=== PATIENT | female | born 1935 | race Caucasian/White ===

== ENCOUNTER 2021-08-02 02:30 | Inpatient (IN) ==
[2021-08-02] MEDS ORDERED: IPRATROPIUM/ALBUTEROL 3 ML AMPUL.NEB NEB ONE (02:45)
[2021-08-02] MEDS ORDERED: NITROGLYCERIN 0.4 MG TAB.SUBL SL ONE (02:52)
[2021-08-02] MEDS ORDERED: FUROSEMIDE 40 MG/4 ML VIAL IV ONE (02:52)
[2021-08-02] MEDS ORDERED: cefTRIAXone 1 GM VIAL IV ONE (02:54)
[2021-08-02] MEDS ORDERED: AZITHROMYCIN 500 MG in DEXTROSE 5% IN WATER 250 ML IV ONE (02:54)
[2021-08-02 03:54] LABS: Basophils # (Auto) 0.06 K/mcL (0.00-0.30); Basophils % (Auto) 0.3 % (0.0-2.0); Eosinophils # (Auto) 0.03 K/mcL (0.00-0.70); Eosinophils % (Auto) 0.2 % (0.0-7.0); Hemoglobin 11.9 g/dL (11.2-15.7); Lymphocytes # (Auto) 0.92 K/mcL (1.50-4.80); Lymphocytes % (Auto) 5.4 % (15.5-49.0); Mean Cell Volume 88.9 fL (80.0-100.0); Mean Corpuscular HGB Conc 33.1 g/dL (31.0-36.0); Mean Platelet Volume 10.2 fL (7.4-10.4); Monocytes % (Auto) 7.6 % (1.0-12.0); Neutrophils % (Auto) 86.5 % (38.0-78.0); Platelet Count 199 K/mcL (140-440); RBC 4.05 M/mcL (3.59-5.38); Red Cell Distribution Width 13.5 % (11.5-14.5); WBC 17.2 K/mcL (4.5-11.0)
[2021-08-02 04:06] LABS: ALT/SGPT 11 U/L (<40); AST/SGOT 22 U/L (<32); Albumin 4.2 gm/dL (3.2-5.2); Albumin/Globulin Ratio 1.4 (1.0-2.3); Alkaline Phosphatase 103 U/L (39-117); Bilirubin,Total 0.9 mg/dL (0.1-1.0); Blood Urea Nitrogen 16 mg/dL (8-23); Calcium 9.4 mg/dL (8.6-10.4); Carbon Dioxide 27 mmol/L (22-30); Chloride 86 mmol/L (96-108); Globulin 2.9 gm/dL (2.2-3.7); Glomerular Filtration Rate 57; Glucose 230 mg/dL (70-105); proBNP 839.5 pg/mL (<450.0)
[2021-08-02 05:03] LABS: Appearance,Urine CLEAR (Clear); Bilirubin,Urine Negative (Negative); Color,Urine YELLOW; Culture Indicated,Urine No; Glucose,Urine (UA) Negative (Negative); Ketones,Urine Negative (Negative); Leukocyte Esterase,Urine Negative /uL (Negative); Mucus,Urine FEW /hpf; Nitrate,Urine Negative (Negative); Protein,Urine >=500 mg/dL (Negative); Specific Gravity,Urine 1.008 (1.000-1.035); Urine Blood Negative (Negative); Urine Hyaline Cast 6 /lph (0-2); Urine RBC 5 /hpf (0-3); Urine Squamous Epithelial Cell 0 /hpf (0-4); Urine WBC 2 /hpf (0-4); Urobilinogen,Urine Negative
--- NOTE | 2021-08-02 05:36 | XRay Report ---
INDICATION: SOB, rales, hypoxia TECHNIQUE: AP portable semiupright chest x-ray COMPARISON: None FINDINGS: Diffuse pulmonary parenchymal infiltrates, worst at the right lung base. Appearances consistent with pulmonary edema. Pneumonia is not excluded in the appropriate clinical circumstances. There is cardiomegaly. There is probable right pleural fluid. IMPRESSION: Findings consistent with cardiomegaly and congestive heart failure Interpreted and Authenticated by: Britton Whittington 08/02/21
--- NOTE | 2021-08-02 06:17 | Emergency Department Note ---
SOB HPI General Chief Complaint: Shortness of Breath/Dyspnea Stated Complaint: short of breath Time Seen by Provider: 08/02/21 02:44 Source: family Mode of arrival: EMS Limitations: other History of Present Illness HPI Narrative: Narrative: 86-year-old female history of A. fib, CHF on Coumadin, digoxin, torsemide,, chronic pain syndromes on methadone presenting to the ED with severe dyspnea. Started since yesterday. Slight cough no fevers no chest pain also has some mild general abdominal pain. Legs perhaps slightly swollen bilaterally although has some mild chronic edema family reports. No fever chills or URI symptoms. No other complaints. EMS reports O2 sat 70% in the field placed her on 15 L nonrebreather up to 90% brought her to the ER. Related Data Home Medications Medication Instructions Recorded Confirmed docusate sodium 100 mg capsule 100 mg PO BID PRN 12/23/18 07/14/21 ketotifen fumarate 0.025 % (0.035 1 drp OPHTHALMIC BID 04/14/19 07/14/21 %) eye drops ([place]) loratadine 5 mg disintegrating 5 mg PO ONCE 08/17/20 07/14/21 tablet (Claritin RediTabs) ascorbic acid (vitamin C) 1,000 mg 500 mg PO QDAY 06/08/21 07/14/21 tablet (Vitamin C) torsemide 20 mg tablet 20 mg PO BID tab 07/14/21 08/02/21 digoxin 125 mcg (0.125 mg) tablet 125 mcg PO DAILY 08/02/21 08/02/21 estradiol 1 g VAGINAL 3XW 08/02/21 08/02/21 lorazepam 1 mg tablet 1 mg PO QHS PRN 08/02/21 08/02/21 metronidazole 0.75 % topical cream 1 applic TOPICAL DAILY 08/02/21 08/02/21 Previous Rx's Medication Instructions Recorded cholecalciferol (vitamin D3) 50 2,000 unit PO QDAY #90 tab 04/14/19 mcg (2,000 unit) tablet fluticasone propionate 50 2 spray INTRANASAL QDAY #16 g 10/20/19 mcg/actuation nasal spray,suspension tamsulosin 0.4 mg capsule 0.4 mg PO QDAY #30 cap 01/24/21 naloxone 4 mg/actuation nasal 4 mg INTRANASAL Q2M #2 ea 04/13/22 spray (Narcan) methadone 10 mg tablet 10 mg PO QDAY #30 tab MDD 1 06/08/21 warfarin 4 mg tablet 4 mg PO QDAY #0 tab 06/30/21 Allergies Allergy/AdvReac Type Severity Reaction Status Date / Time bumetanide Allergy Unknown Unknown Verified 08/02/21 05:48 flaxseed Allergy Unknown Unknown Verified 08/02/21 05:48 gentamicin Allergy Unknown Anaphylaxis Verified 08/02/21 05:48 mesalamine Allergy Unknown Unknown Verified 08/02/21 05:48 Metolazone Allergy Unknown Unknown Verified 08/02/21 05:48 Sulfa (Sulfonamide Allergy Unknown Anaphylaxis Verified 08/02/21 05:48 Antibiotics) wheat Allergy Unknown Diarrhea Verified 08/02/21 05:48 Animals Allergy Unknown Unknown Uncoded 07/14/21 11:18 Grass Allergy Unknown Unknown Uncoded 07/14/21 11:18 Trees Allergy Unknown Unknown Uncoded 07/14/21 11:18 Weeds Allergy Unknown Unknown Uncoded 07/14/21 11:18 Review of Systems ROS ROS Narrative: Narrative: All systems ED: reviewed and negative except as stated. PFSH Narrative Patient History Narrative: Narrative: Medical/Surgical/Family History All Active Problems (Updated 08/02/21 @ 06:21 by Kendrick Singh DO) Acute exacerbation of CHF (congestive heart failure) (Acute) Acute respiratory failure with hypoxia (Acute) Diabetes (Acute) Pre-op evaluation (Acute) Encounter for monitoring Coumadin therapy (Acute) White coat syndrome with diagnosis of hypertension (Chronic) Erosive (osteo)arthritis (Acute) Knee pain, left (Acute) Hyponatremia (Chronic) Anemia due to stage 3a chronic kidney disease (Chronic) Hyperkalemia (Acute) Hypercalcemia (Acute) Chronic kidney disease (CKD) stage G3a/A3, moderately decreased glomerular filtration rate (GFR) between 45-59 mL/min/1.73 square meter and albuminuria creatinine ratio greater than 300 mg/g (Chronic) Basal cell carcinoma of skin, unspecified (Acute) Cardiac arrhythmia, unspecified (Acute) Opioid dependence, uncomplicated (Acute) Idiopathic progressive neuropathy (Acute) Chronic pain (Acute) Fatigue (Acute) History of colonoscopy (Chronic ~2001) Allergies (Chronic) Colon ulcer (Chronic) Kidney stones (Chronic ~2005) Insomnia (Chronic) Daytime sleepiness (Chronic) Basal cell carcinoma (Chronic ~1985) Arthritis (Chronic) Constipation (Chronic) Hayfever (Chronic) detention (current) use of opiate analgesic (Chronic) Urinary incontinence (Chronic) Rosacea (Chronic) Chronic atrial fibrillation (Chronic) Neuropathy (Chronic) Ulcerative colitis (Chronic) Anxiety disorder (Chronic) Cyst of pancreas (Chronic) Localized edema due to fluid overload (Chronic) Persistent proteinuria (Chronic) Gout due to renal impairment (Chronic) Hyperglycemia (Chronic) Anemia (Chronic) Ulcerative enterocolitis (Chronic) Hypertension (Chronic) Acute anxiety (Chronic) Atrial fibrillation (Chronic) Chronic pain syndrome (Chronic) Peripheral neuropathy (Chronic) Medical History Acute anxiety Allergies Anemia Anxiety disorder Arthritis Atrial fibrillation Basal cell carcinoma (~1985) Basal cell carcinoma of skin, unspecified Cardiac arrhythmia, unspecified Chronic atrial fibrillation Chronic pain Chronic pain syndrome Colon ulcer Constipation Cyst of pancreas Daytime sleepiness Encounter for monitoring Coumadin therapy Erosive (osteo)arthritis Fatigue Hayfever Heart trouble (~1986) Hyperglycemia Hypertension Idiopathic progressive neuropathy Insomnia Kidney stones (~2005) Knee pain, left detention (current) use of opiate analgesic Neuropathy Opioid dependence, uncomplicated use for nonmalignant pain Peripheral neuropathy Pre-op evaluation Rosacea Ulcerative colitis Ulcerative enterocolitis Urinary incontinence Surgical History History of colonoscopy (~2001) History of hysterectomy (~1968) Family History Grandmother Arthritis Maternal Aunt Cancer Heart attack Paternal Uncle Cancer Father Cancer Social History Smoking Status: Never smoker Alcohol Intake Frequency: does not drink Substance Use: does not use Exam Narrative Narrative: Narrative: Constitutional: normally developed, overall frail appearing Head: Normocephalic, atraumatic, Eyes: No Icterus, ENT: Moist mucus membranes, Neck: Supple, Cardiac: Tachycardic irregular heart sounds, palpable radial pulses, 1+ pitting edema Pulmonary: Labored diminished lung sounds at bases, she has diffuse rales bilaterally especially significant at the right base Gastrointestinal: Abdomen soft, slightly distended but nontender Musculoskeletal: No gross deformities, well perfused Skin: warm, dry Neuro: Alert and oriented. General Limitations: other Course Vital Signs Vital signs: Vital Signs Pulse Rate 116 H 08/02/21 02:31 Respiratory Rate 30 H 08/02/21 02:31 Blood Pressure 183/99 08/02/21 02:31 Pulse Oximetry (%) 96 08/02/21 02:31 Pulse Rate 73 08/02/21 06:16 Respiratory Rate 21 08/02/21 06:16 Blood Pressure 124/73 08/02/21 06:16 Pulse Oximetry (%) 98 08/02/21 06:16 MDM MDM Narrative Medical decision making narrative: Narrative: Patient presents with dyspnea hypoxia work-up was initiated. Blood pressure elevated as well as heart rate and appears volume overloaded. Biggest suspicion is for CHF exacerbation did give her sublingual nitroglycerin in the meantime. We will place her on BiPAP. Did trial her with a single DuoNeb X-ray per my interpretation Shows bilateral pulmonary edema right greater than left with a right-sided effusion cannot entirely rule out pneumonia Patient was given 40 mg IV Lasix, initial dose of antibiotics Rocephin azithromycin Twelve-lead EKG A. fib heart rate 100 occasional PVC no STEMI criteria generalized nonspecific changes no ST segment changes COVID-negative CBC leukocytosis of 17 Procalcitonin normal ABG pH 7.4 PCO2 46 PO2 64, bicarb 28 this was obtained at that time she was placed on BiPAP Lactic acid is normal 1.5 on the gas, lactic acid 0.7 on the labs Electrolytes hyponatremia somewhat chronic 125 hypochloremia 86 normal potassium, normal renal function, glucose 230, consistent with suspected new diabetes BNP 840 Urinalysis no infection [id number] troponin 0 Presentation most suggestive of CHF exacerbation with pulmonary edema, has received treatment as above, reevaluation she appears to be doing very well on BiPAP, will continue as is, we do not have any beds available we are on the wait list at [place] other surrounding areas are completely full, we will continue treating and continue with bed search, have updated patient and family all agreeable no new complaints 0630: Addendum, patient weaned off BiPAP currently comfortable and stable on 2 L nasal cannula continue close observation 0700: Signed out to Dr. Jewell still awaiting final disposition Critical Care Time Total CriticalCare time was at least 45 minutes, excluding separately reportable procedures. There was a high probability of clinically significant/life threatening deterioration in the patient's condition which required my urgent intervention. Lab Data Result diagrams: 08/02/21 02:57 08/02/21 02:54 Labs: Lab Results 08/02/21 08/02/21 08/02/21 Range/Units 02:54 02:54 02:57 WBC 17.2 H (4.5-11.0) K/mcL RBC 4.05 (3.59-5.38) M/mcL Hgb 11.9 (11.2-15.7) g/dL Hct 36.0 (34.1-44.9) % MCV 88.9 (80.0-100.0) fL MCH 29.4 (26.0-34.0) pg MCHC 33.1 (31.0-36.0) g/dL RDW 13.5 (11.5-14.5) % Plt Count 199 (140-440) K/mcL MPV 10.2 (7.4-10.4) fL Neut % (Auto) 86.5 H (38.0-78.0) % Lymph % (Auto) 5.4 L (15.5-49.0) % [place] % (Auto) 7.6 (1.0-12.0) % Eos % (Auto) 0.2 (0.0-7.0) % Baso % (Auto) 0.3 (0.0-2.0) % Lymph # (Auto) 0.92 L (1.50-4.80) K/mcL [place] # (Auto) 1.30 H (0.10-0.90) K/mcL Eos # (Auto) 0.03 (0.00-0.70) K/mcL Baso # (Auto) 0.06 (0.00-0.30) K/mcL Absolute Neutrophils 14.84 H (1.80-8.00) K/mcL POC pH (7.35-7.45) POC pCO2 (35-45) mmHg POC pO2 (80-100) mmHg POC HCO3 (22-26) mmHg POC Total CO2 (23-27) mmHg POC ABG Base Excess (-2-3) VBG Lactic Acid (0.5-2.0) mmol/L Hgb O2 Saturation (94-97) Sodium 125 L (133-145) mmol/L Potassium 4.0 (3.3-5.1) mmol/L Chloride 86 L (96-108) mmol/L Carbon Dioxide 27 (22-30) mmol/L Anion Gap 12.0 (8.0-16.0) BUN 16 (8-23) mg/dL Creatinine 0.9 (0.6-1.1) mg/dL GFR Calculation 57 Glucose 230 H (70-105) mg/dL POC Arterial Lactate (0.5-2) Calcium 9.4 (8.6-10.4) mg/dL Total Bilirubin 0.9 (0.1-1.0) mg/dL AST 22 (<32) U/L ALT 11 (<40) U/L Alkaline Phosphatase 103 (39-117) U/L NT-Pro-B Natriuret Pep 839.5 H (<450.0) pg/mL Total Protein 7.1 (5.9-8.4) gm/dL Albumin 4.2 (3.2-5.2) gm/dL Globulin 2.9 (2.2-3.7) gm/dL Albumin/Globulin Ratio 1.4 (1.0-2.3) Lipase 12 (7-60) U/L Procalcitonin (<0.10) ng/mL Urine Color Urine Appearance (Clear) Urine pH (5.0-9.0) Ur Specific [place] (1.000-1.035) Urine Protein (Negative) mg/dL Urine Glucose (UA) (Negative) mg/dL Urine Ketones (Negative) mg/dL Urine Occult Blood (Negative) mg/dL Urine Nitrate (Negative) Urine Bilirubin (Negative) mg/dL Urine Urobilinogen mg/dL Ur Leukocyte Esterase (Negative) /uL Urine RBC (0-3) /hpf Urine WBC (0-4) /hpf Ur Squamous Epith Cells (0-4) /hpf Urine Bacteria (0) /hpf Hyaline Casts (0-2) /lph Urine Mucus (None) /hpf Ur Culture Indicated? POC Troponin I 0 L (0.02-0.08) 08/02/21 08/02/21 08/02/21 Range/Units 02:57 03:14 03:47 WBC (4.5-11.0) K/mcL RBC (3.59-5.38) M/mcL Hgb (11.2-15.7) g/dL Hct (34.1-44.9) % MCV (80.0-100.0) fL MCH (26.0-34.0) pg MCHC (31.0-36.0) g/dL RDW (11.5-14.5) % Plt Count (140-440) K/mcL MPV (7.4-10.4) fL Neut % (Auto) (38.0-78.0) % Lymph % (Auto) (15.5-49.0) % [place] % (Auto) (1.0-12.0) % Eos % (Auto) (0.0-7.0) % Baso % (Auto) (0.0-2.0) % Lymph # (Auto) (1.50-4.80) K/mcL [place] # (Auto) (0.10-0.90) K/mcL Eos # (Auto) (0.00-0.70) K/mcL Baso # (Auto) (0.00-0.30) K/mcL Absolute Neutrophils (1.80-8.00) K/mcL POC pH 7.40 (7.35-7.45) POC pCO2 46.3 H (35-45) mmHg POC pO2 64 L (80-100) mmHg POC HCO3 28.5 H (22-26) mmHg POC Total CO2 30.0 H (23-27) mmHg POC ABG Base Excess 4.0 H (-2-3) VBG Lactic Acid 1.5 (0.5-2.0) mmol/L Hgb O2 Saturation 92.0 L (94-97) Sodium (133-145) mmol/L Potassium (3.3-5.1) mmol/L Chloride (96-108) mmol/L Carbon Dioxide (22-30) mmol/L Anion Gap (8.0-16.0) BUN (8-23) mg/dL Creatinine (0.6-1.1) mg/dL GFR Calculation Glucose (70-105) mg/dL POC Arterial Lactate 0.7 (0.5-2) Calcium (8.6-10.4) mg/dL Total Bilirubin (0.1-1.0) mg/dL AST (<32) U/L ALT (<40) U/L Alkaline Phosphatase (39-117) U/L NT-Pro-B Natriuret Pep (<450.0) pg/mL Total Protein (5.9-8.4) gm/dL Albumin (3.2-5.2) gm/dL Globulin (2.2-3.7) gm/dL Albumin/Globulin Ratio (1.0-2.3) Lipase (7-60) U/L Procalcitonin 0.09 (<0.10) ng/mL Urine Color Urine Appearance (Clear) Urine pH (5.0-9.0) Ur Specific [place] (1.000-1.035) Urine Protein (Negative) mg/dL Urine Glucose (UA) (Negative) mg/dL Urine Ketones (Negative) mg/dL Urine Occult Blood (Negative) mg/dL Urine Nitrate (Negative) Urine Bilirubin (Negative) mg/dL Urine Urobilinogen mg/dL Ur Leukocyte Esterase (Negative) /uL Urine RBC (0-3) /hpf Urine WBC (0-4) /hpf Ur Squamous Epith Cells (0-4) /hpf Urine Bacteria (0) /hpf Hyaline Casts (0-2) /lph Urine Mucus (None) /hpf Ur Culture Indicated? POC Troponin I (0.02-0.08) 08/02/21 Range/Units 04:16 WBC (4.5-11.0) K/mcL RBC (3.59-5.38) M/mcL Hgb (11.2-15.7) g/dL Hct (34.1-44.9) % MCV (80.0-100.0) fL MCH (26.0-34.0) pg MCHC (31.0-36.0) g/dL RDW (11.5-14.5) % Plt Count (140-440) K/mcL MPV (7.4-10.4) fL Neut % (Auto) (38.0-78.0) % Lymph % (Auto) (15.5-49.0) % [place] % (Auto) (1.0-12.0) % Eos % (Auto) (0.0-7.0) % Baso % (Auto) (0.0-2.0) % Lymph # (Auto) (1.50-4.80) K/mcL [place] # (Auto) (0.10-0.90) K/mcL Eos # (Auto) (0.00-0.70) K/mcL Baso # (Auto) (0.00-0.30) K/mcL Absolute Neutrophils (1.80-8.00) K/mcL POC pH (7.35-7.45) POC pCO2 (35-45) mmHg POC pO2 (80-100) mmHg POC HCO3 (22-26) mmHg POC Total CO2 (23-27) mmHg POC ABG Base Excess (-2-3) VBG Lactic Acid (0.5-2.0) mmol/L Hgb O2 Saturation (94-97) Sodium (133-145) mmol/L Potassium (3.3-5.1) mmol/L Chloride (96-108) mmol/L Carbon Dioxide (22-30) mmol/L Anion Gap (8.0-16.0) BUN (8-23) mg/dL Creatinine (0.6-1.1) mg/dL GFR Calculation Glucose (70-105) mg/dL POC Arterial Lactate (0.5-2) Calcium (8.6-10.4) mg/dL Total Bilirubin (0.1-1.0) mg/dL AST (<32) U/L ALT (<40) U/L Alkaline Phosphatase (39-117) U/L NT-Pro-B Natriuret Pep (<450.0) pg/mL Total Protein (5.9-8.4) gm/dL Albumin (3.2-5.2) gm/dL Globulin (2.2-3.7) gm/dL Albumin/Globulin Ratio (1.0-2.3) Lipase (7-60) U/L Procalcitonin (<0.10) ng/mL Urine Color Yellow Urine Appearance Clear (Clear) Urine pH 6.0 (5.0-9.0) Ur Specific [place] 1.008 (1.000-1.035) Urine Protein >=500 A (Negative) mg/dL Urine Glucose (UA) Negative (Negative) mg/dL Urine Ketones Negative (Negative) mg/dL Urine Occult Blood Negative (Negative) mg/dL Urine Nitrate Negative (Negative) Urine Bilirubin Negative (Negative) mg/dL Urine Urobilinogen Negative mg/dL Ur Leukocyte Esterase Negative (Negative) /uL Urine RBC 5 H (0-3) /hpf Urine WBC 2 (0-4) /hpf Ur Squamous Epith Cells 0 (0-4) /hpf Urine Bacteria None (0) /hpf Hyaline Casts 6 H (0-2) /lph Urine Mucus Few A (None) /hpf Ur Culture Indicated? No POC Troponin I (0.02-0.08) ED POC Tests ED POC Tests: LUL - SARS Antigen Negative Discharge Plan Patient/Caregiver Discharge Instructions Pt seen by PERCUSSION TEACHER/PA only: No Clinical Impression: Acute exacerbation of CHF (congestive heart failure), Acute respiratory failure with hypoxia, Diabetes Patient Disposition: Xfer As Inpt ([facility]) Condition: Serious Follow up with: Kam Sorensen ARNP [Primary Care Provider] - Prescriptions: No Action fluticasone propionate 50 mcg/actuation spray,suspension 2 spray INTRANASAL QDAY Qty: 16 2RF Rx Instructions: administer into each nostril tamsulosin 0.4 mg capsule 0.4 mg PO QDAY Qty: 30 11RF warfarin 4 mg tablet 4 mg PO QDAY Qty: 0 0RF naloxone [Narcan] 4 mg/actuation spray,non-aerosol 4 mg intranasal Q2M Qty: 2 0RF Rx Instructions: spray 1 dose into ONE nostril; alternate nostrils w each dose until help arrives ascorbic acid (vitamin C) [Vitamin C] 1,000 mg tablet 500 mg PO QDAY 0RF methadone 10 mg tablet 10 mg PO QDAY MDD 1 Qty: 30 0RF Rx Instructions: *MUST LAST 30 DAYS*, P/U 08/17 , Start 08/18 docusate sodium 100 mg capsule 100 mg PO BID PRN0RF cholecalciferol (vitamin D3) 50 mcg (2,000 unit) tablet 2,000 unit PO QDAY Qty: 90 4RF Claritin RediTabs 5 mg tablet,disintegrating 5 mg PO ONCE 0RF torsemide 20 mg tablet 20 mg PO BID 0RF Rx Instructions: 20 mg in am and 20 mg at 3:00 p.m. metronidazole 0.75 % cream 1 applic TOPICAL DAILY 0RF digoxin 125 mcg (0.125 mg) tablet 125 mcg PO DAILY 0RF lorazepam 1 mg tablet 1 mg PO QHS PRN (Reason: sleep) 0RF estradiol 0.01 % (0.1 mg/gram) cream 1 g VAGINAL 3XW 0RF ketotifen fumarate [[place]] 0.025 % (0.035 %) drops 1 drp OPHTHALMIC BID 0RF
[2021-08-02] MEDS ORDERED: METHADONE 5 MG TABLET PO ONE (06:39)
[2021-08-02 06:42] LABS: POC INR 2.4 (0.8-1.2); POC Pro Time 27.2 (11.9-14.5)
[2021-08-02 07:57] LABS: POC Calcium, Ionized 1.01 (1.16-1.32); POC Creatinine 0.8 (0.6-1.2); POC Potassium 4.4 (3.3-5.1)
--- NOTE | 2021-08-02 10:55 | Emergency Department Note ---
HPI General Chief complaint: Shortness of Breath/Dyspnea Stated complaint: short of breath Time Seen by Provider: 08/02/21 02:44 Source: family Mode of arrival: EMS Limitations: other History of Present Illness HPI Narrative: Narrative: Patient signed out to me pending admission versus transfer. Briefly with CHF e xacerbation, hypertensive emergency on arrival requiring BiPAP, weaned off now on 2 L nasal cannula. Patient feels otherwise well. She is noted to be hyponatremic. Related Data Home Medications Medication Instructions Recorded Confirmed docusate sodium 100 mg capsule 100 mg PO BID PRN 12/23/18 07/14/21 ketotifen fumarate 0.025 % (0.035 1 drp OPHTHALMIC BID 04/14/19 07/14/21 %) eye drops ([place]) loratadine 5 mg disintegrating 5 mg PO ONCE 08/17/20 07/14/21 tablet (Claritin RediTabs) ascorbic acid (vitamin C) 1,000 mg 500 mg PO QDAY 06/08/21 07/14/21 tablet (Vitamin C) torsemide 20 mg tablet 20 mg PO BID tab 07/14/21 08/02/21 digoxin 125 mcg (0.125 mg) tablet 125 mcg PO DAILY 08/02/21 08/02/21 estradiol 1 g VAGINAL 3XW 08/02/21 08/02/21 lorazepam 1 mg tablet 1 mg PO QHS PRN 08/02/21 08/02/21 metronidazole 0.75 % topical cream 1 applic TOPICAL DAILY 08/02/21 08/02/21 Previous Rx's Medication Instructions Recorded cholecalciferol (vitamin D3) 50 2,000 unit PO QDAY #90 tab 04/14/19 mcg (2,000 unit) tablet fluticasone propionate 50 2 spray INTRANASAL QDAY #16 g 10/20/19 mcg/actuation nasal spray,suspension tamsulosin 0.4 mg capsule 0.4 mg PO QDAY #30 cap 01/24/21 naloxone 4 mg/actuation nasal 4 mg INTRANASAL Q2M #2 ea 06/07/21 spray (Narcan) methadone 10 mg tablet 10 mg PO QDAY #30 tab MDD 1 06/08/21 warfarin 4 mg tablet 4 mg PO QDAY #0 tab 06/30/21 Allergies Allergy/AdvReac Type Severity Reaction Status Date / Time bumetanide Allergy Unknown Unknown Verified 08/02/21 05:48 flaxseed Allergy Unknown Unknown Verified 08/02/21 05:48 gentamicin Allergy Unknown Anaphylaxis Verified 08/02/21 05:48 mesalamine Allergy Unknown Unknown Verified 08/02/21 05:48 Metolazone Allergy Unknown Unknown Verified 08/02/21 05:48 Sulfa (Sulfonamide Allergy Unknown Anaphylaxis Verified 08/02/21 05:48 Antibiotics) wheat Allergy Unknown Diarrhea Verified 08/02/21 05:48 Animals Allergy Unknown Unknown Uncoded 07/14/21 11:18 Grass Allergy Unknown Unknown Uncoded 07/14/21 11:18 Trees Allergy Unknown Unknown Uncoded 07/14/21 11:18 Weeds Allergy Unknown Unknown Uncoded 07/14/21 11:18 Review of Systems ROS ROS Narrative: Narrative: PFSH Narrative Patient History Narrative: Narrative: Medical/Surgical/Family History All Active Problems (Updated 08/02/21 @ 06:21 by Kendrick Singh DO) Acute exacerbation of CHF (congestive heart failure) (Acute) Acute respiratory failure with hypoxia (Acute) Diabetes (Acute) Pre-op evaluation (Acute) Encounter for monitoring Coumadin therapy (Acute) White coat syndrome with diagnosis of hypertension (Chronic) Erosive (osteo)arthritis (Acute) Knee pain, left (Acute) Hyponatremia (Chronic) Anemia due to stage 3a chronic kidney disease (Chronic) Hyperkalemia (Acute) Hypercalcemia (Acute) Chronic kidney disease (CKD) stage G3a/A3, moderately decreased glomerular filtration rate (GFR) between 45-59 mL/min/1.73 square meter and albuminuria creatinine ratio greater than 300 mg/g (Chronic) Basal cell carcinoma of skin, unspecified (Acute) Cardiac arrhythmia, unspecified (Acute) Opioid dependence, uncomplicated (Acute) Idiopathic progressive neuropathy (Acute) Chronic pain (Acute) Fatigue (Acute) History of colonoscopy (Chronic ~2001) Allergies (Chronic) Colon ulcer (Chronic) Kidney stones (Chronic ~2005) Insomnia (Chronic) Daytime sleepiness (Chronic) Basal cell carcinoma (Chronic ~1985) Arthritis (Chronic) Constipation (Chronic) Hayfever (Chronic) senior living (current) use of opiate analgesic (Chronic) Urinary incontinence (Chronic) Rosacea (Chronic) Chronic atrial fibrillation (Chronic) Neuropathy (Chronic) Ulcerative colitis (Chronic) Anxiety disorder (Chronic) Cyst of pancreas (Chronic) Localized edema due to fluid overload (Chronic) Persistent proteinuria (Chronic) Gout due to renal impairment (Chronic) Hyperglycemia (Chronic) Anemia (Chronic) Ulcerative enterocolitis (Chronic) Hypertension (Chronic) Acute anxiety (Chronic) Atrial fibrillation (Chronic) Chronic pain syndrome (Chronic) Peripheral neuropathy (Chronic) Medical History Acute anxiety Allergies Anemia Anxiety disorder Arthritis Atrial fibrillation Basal cell carcinoma (~1985) Basal cell carcinoma of skin, unspecified Cardiac arrhythmia, unspecified Chronic atrial fibrillation Chronic pain Chronic pain syndrome Colon ulcer Constipation Cyst of pancreas Daytime sleepiness Encounter for monitoring Coumadin therapy Erosive (osteo)arthritis Fatigue Hayfever Heart trouble (~1986) Hyperglycemia Hypertension Idiopathic progressive neuropathy Insomnia Kidney stones (~2005) Knee pain, 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 Neuropathy Opioid dependence, uncomplicated use for nonmalignant pain Peripheral neuropathy Pre-op evaluation Rosacea Ulcerative colitis Ulcerative enterocolitis Urinary incontinence Surgical History History of colonoscopy (~2001) History of hysterectomy (~1968) Family History Grandmother Arthritis Maternal Aunt Cancer Heart attack Paternal Uncle Cancer Father Cancer Social History Smoking Status: Never smoker Alcohol Intake Frequency: does not drink Substance Use: does not use Exam Narrative Narrative: Narrative: General Limitations: other General appearance: Present alert and in no apparent distress Chest Chest: Present normal inspection and symmetric chest wall rise Respiratory Respiratory: Present other (Requiring 2 L nasal cannula); Absent respiratory distress Course Vital Signs Vital signs: Vital Signs Pulse Rate 116 H 08/02/21 02:31 Respiratory Rate 30 H 08/02/21 02:31 Blood Pressure 183/99 08/02/21 02:31 Pulse Oximetry (%) 96 08/02/21 02:31 Pulse Rate 99 H 08/02/21 10:45 Respiratory Rate 19 08/02/21 10:45 Blood Pressure 126/93 08/02/21 10:45 Pulse Oximetry (%) 93 08/02/21 10:45 MDM MDM Narrative Medical decision making narrative: Narrative: Patient with hypertensive emergency/CHF exacerbation requiring oxygen, will admit for further stabilization. Accepted by hospitalist had no other acute events Lab Data Result diagrams: 08/02/21 02:57 08/02/21 02:54 Labs: Lab Results 08/02/21 08/02/21 08/02/21 Range/Units 02:54 02:54 02:57 WBC 17.2 H (4.5-11.0) K/mcL RBC 4.05 (3.59-5.38) M/mcL Hgb 11.9 (11.2-15.7) g/dL Hct 36.0 (34.1-44.9) % POC Hct (36-48) MCV 88.9 (80.0-100.0) fL MCH 29.4 (26.0-34.0) pg MCHC 33.1 (31.0-36.0) g/dL RDW 13.5 (11.5-14.5) % Plt Count 199 (140-440) K/mcL MPV 10.2 (7.4-10.4) fL Neut % (Auto) 86.5 H (38.0-78.0) % Lymph % (Auto) 5.4 L (15.5-49.0) % [place] % (Auto) 7.6 (1.0-12.0) % Eos % (Auto) 0.2 (0.0-7.0) % Baso % (Auto) 0.3 (0.0-2.0) % Lymph # (Auto) 0.92 L (1.50-4.80) K/mcL [place] # (Auto) 1.30 H (0.10-0.90) K/mcL Eos # (Auto) 0.03 (0.00-0.70) K/mcL Baso # (Auto) 0.06 (0.00-0.30) K/mcL Absolute Neutrophils 14.84 H (1.80-8.00) K/mcL POC PT (11.9-14.5) POC INR (0.8-1.2) POC pH (7.35-7.45) POC pCO2 (35-45) mmHg POC pO2 (80-100) mmHg POC HCO3 (22-26) mmHg POC Total CO2 (23-27) mmHg POC ABG Base Excess (-2-3) VBG Lactic Acid (0.5-2.0) mmol/L Hgb O2 Saturation (94-97) POC Sodium (133-145) Sodium 125 L (133-145) mmol/L POC Potassium (3.3-5.1) Potassium 4.0 (3.3-5.1) mmol/L POC Chloride (96-108) Chloride 86 L (96-108) mmol/L Carbon Dioxide 27 (22-30) mmol/L Anion Gap 12.0 (8.0-16.0) POC BUN (6-20) BUN 16 (8-23) mg/dL Creatinine 0.9 (0.6-1.1) mg/dL POC Creatinine (0.6-1.2) GFR Calculation 57 Glucose 230 H (70-105) mg/dL POC Glucose (70-105) POC Arterial Lactate (0.5-2) Calcium 9.4 (8.6-10.4) mg/dL POC WB Ioniz Calcium (1.16-1.32) Total Bilirubin 0.9 (0.1-1.0) mg/dL AST 22 (<32) U/L ALT 11 (<40) U/L Alkaline Phosphatase 103 (39-117) U/L NT-Pro-B Natriuret Pep 839.5 H (<450.0) pg/mL Total Protein 7.1 (5.9-8.4) gm/dL Albumin 4.2 (3.2-5.2) gm/dL Globulin 2.9 (2.2-3.7) gm/dL Albumin/Globulin Ratio 1.4 (1.0-2.3) Lipase 12 (7-60) U/L Procalcitonin (<0.10) ng/mL Urine Color Urine Appearance (Clear) Urine pH (5.0-9.0) Ur Specific [place] (1.000-1.035) Urine Protein (Negative) mg/dL Urine Glucose (UA) (Negative) mg/dL Urine Ketones (Negative) mg/dL Urine Occult Blood (Negative) mg/dL Urine Nitrate (Negative) Urine Bilirubin (Negative) mg/dL Urine Urobilinogen mg/dL Ur Leukocyte Esterase (Negative) /uL Urine RBC (0-3) /hpf Urine WBC (0-4) /hpf Ur Squamous Epith Cells (0-4) /hpf Urine Bacteria (0) /hpf Hyaline Casts (0-2) /lph Urine Mucus (None) /hpf Ur Culture Indicated? POC Troponin I 0 L (0.02-0.08) 08/02/21 08/02/21 08/02/21 Range/Units 02:57 03:14 03:47 WBC (4.5-11.0) K/mcL RBC (3.59-5.38) M/mcL Hgb (11.2-15.7) g/dL Hct (34.1-44.9) % POC Hct (36-48) MCV (80.0-100.0) fL MCH (26.0-34.0) pg MCHC (31.0-36.0) g/dL RDW (11.5-14.5) % Plt Count (140-440) K/mcL MPV (7.4-10.4) fL Neut % (Auto) (38.0-78.0) % Lymph % (Auto) (15.5-49.0) % [place] % (Auto) (1.0-12.0) % Eos % (Auto) (0.0-7.0) % Baso % (Auto) (0.0-2.0) % Lymph # (Auto) (1.50-4.80) K/mcL [place] # (Auto) (0.10-0.90) K/mcL Eos # (Auto) (0.00-0.70) K/mcL Baso # (Auto) (0.00-0.30) K/mcL Absolute Neutrophils (1.80-8.00) K/mcL POC PT (11.9-14.5) POC INR (0.8-1.2) POC pH 7.40 (7.35-7.45) POC pCO2 46.3 H (35-45) mmHg POC pO2 64 L (80-100) mmHg POC HCO3 28.5 H (22-26) mmHg POC Total CO2 30.0 H (23-27) mmHg POC ABG Base Excess 4.0 H (-2-3) VBG Lactic Acid 1.5 (0.5-2.0) mmol/L Hgb O2 Saturation 92.0 L (94-97) POC Sodium (133-145) Sodium (133-145) mmol/L POC Potassium (3.3-5.1) Potassium (3.3-5.1) mmol/L POC Chloride (96-108) Chloride (96-108) mmol/L Carbon Dioxide (22-30) mmol/L Anion Gap (8.0-16.0) POC BUN (6-20) BUN (8-23) mg/dL Creatinine (0.6-1.1) mg/dL POC Creatinine (0.6-1.2) GFR Calculation Glucose (70-105) mg/dL POC Glucose (70-105) POC Arterial Lactate 0.7 (0.5-2) Calcium (8.6-10.4) mg/dL POC WB Ioniz Calcium (1.16-1.32) Total Bilirubin (0.1-1.0) mg/dL AST (<32) U/L ALT (<40) U/L Alkaline Phosphatase (39-117) U/L NT-Pro-B Natriuret Pep (<450.0) pg/mL Total Protein (5.9-8.4) gm/dL Albumin (3.2-5.2) gm/dL Globulin (2.2-3.7) gm/dL Albumin/Globulin Ratio (1.0-2.3) Lipase (7-60) U/L Procalcitonin 0.09 (<0.10) ng/mL Urine Color Urine Appearance (Clear) Urine pH (5.0-9.0) Ur Specific [place] (1.000-1.035) Urine Protein (Negative) mg/dL Urine Glucose (UA) (Negative) mg/dL Urine Ketones (Negative) mg/dL Urine Occult Blood (Negative) mg/dL Urine Nitrate (Negative) Urine Bilirubin (Negative) mg/dL Urine Urobilinogen mg/dL Ur Leukocyte Esterase (Negative) /uL Urine RBC (0-3) /hpf Urine WBC (0-4) /hpf Ur Squamous Epith Cells (0-4) /hpf Urine Bacteria (0) /hpf Hyaline Casts (0-2) /lph Urine Mucus (None) /hpf Ur Culture Indicated? POC Troponin I (0.02-0.08) 08/02/21 08/02/21 08/02/21 Range/Units 04:16 06:39 07:54 WBC (4.5-11.0) K/mcL RBC (3.59-5.38) M/mcL Hgb (11.2-15.7) g/dL Hct (34.1-44.9) % POC Hct 33.0 L (36-48) MCV (80.0-100.0) fL MCH (26.0-34.0) pg MCHC (31.0-36.0) g/dL RDW (11.5-14.5) % Plt Count (140-440) K/mcL MPV (7.4-10.4) fL Neut % (Auto) (38.0-78.0) % Lymph % (Auto) (15.5-49.0) % [place] % (Auto) (1.0-12.0) % Eos % (Auto) (0.0-7.0) % Baso % (Auto) (0.0-2.0) % Lymph # (Auto) (1.50-4.80) K/mcL [place] # (Auto) (0.10-0.90) K/mcL Eos # (Auto) (0.00-0.70) K/mcL Baso # (Auto) (0.00-0.30) K/mcL Absolute Neutrophils (1.80-8.00) K/mcL POC PT 27.2 H (11.9-14.5) POC INR 2.4 H (0.8-1.2) POC pH (7.35-7.45) POC pCO2 (35-45) mmHg POC pO2 (80-100) mmHg POC HCO3 (22-26) mmHg POC Total CO2 28.0 (23-27) mmHg POC ABG Base Excess (-2-3) VBG Lactic Acid (0.5-2.0) mmol/L Hgb O2 Saturation (94-97) POC Sodium 127 L (133-145) Sodium (133-145) mmol/L POC Potassium 4.4 (3.3-5.1) Potassium (3.3-5.1) mmol/L POC Chloride 91 L (96-108) Chloride (96-108) mmol/L Carbon Dioxide (22-30) mmol/L Anion Gap (8.0-16.0) POC BUN 16 (6-20) BUN (8-23) mg/dL Creatinine (0.6-1.1) mg/dL POC Creatinine 0.8 (0.6-1.2) GFR Calculation Glucose (70-105) mg/dL POC Glucose 177 H (70-105) POC Arterial Lactate (0.5-2) Calcium (8.6-10.4) mg/dL POC WB Ioniz Calcium 1.01 L (1.16-1.32) Total Bilirubin (0.1-1.0) mg/dL AST (<32) U/L ALT (<40) U/L Alkaline Phosphatase (39-117) U/L NT-Pro-B Natriuret Pep (<450.0) pg/mL Total Protein (5.9-8.4) gm/dL Albumin (3.2-5.2) gm/dL Globulin (2.2-3.7) gm/dL Albumin/Globulin Ratio (1.0-2.3) Lipase (7-60) U/L Procalcitonin (<0.10) ng/mL Urine Color Yellow Urine Appearance Clear (Clear) Urine pH 6.0 (5.0-9.0) Ur Specific [place] 1.008 (1.000-1.035) Urine Protein >=500 A (Negative) mg/dL Urine Glucose (UA) Negative (Negative) mg/dL Urine Ketones Negative (Negative) mg/dL Urine Occult Blood Negative (Negative) mg/dL Urine Nitrate Negative (Negative) Urine Bilirubin Negative (Negative) mg/dL Urine Urobilinogen Negative mg/dL Ur Leukocyte Esterase Negative (Negative) /uL Urine RBC 5 H (0-3) /hpf Urine WBC 2 (0-4) /hpf Ur Squamous Epith Cells 0 (0-4) /hpf Urine Bacteria None (0) /hpf Hyaline Casts 6 H (0-2) /lph Urine Mucus Few A (None) /hpf Ur Culture Indicated? No POC Troponin I (0.02-0.08) 08/02/21 Range/Units 07:57 WBC (4.5-11.0) K/mcL RBC (3.59-5.38) M/mcL Hgb (11.2-15.7) g/dL Hct (34.1-44.9) % POC Hct (36-48) MCV (80.0-100.0) fL MCH (26.0-34.0) pg MCHC (31.0-36.0) g/dL RDW (11.5-14.5) % Plt Count (140-440) K/mcL MPV (7.4-10.4) fL Neut % (Auto) (38.0-78.0) % Lymph % (Auto) (15.5-49.0) % [place] % (Auto) (1.0-12.0) % Eos % (Auto) (0.0-7.0) % Baso % (Auto) (0.0-2.0) % Lymph # (Auto) (1.50-4.80) K/mcL [place] # (Auto) (0.10-0.90) K/mcL Eos # (Auto) (0.00-0.70) K/mcL Baso # (Auto) (0.00-0.30) K/mcL Absolute Neutrophils (1.80-8.00) K/mcL POC PT (11.9-14.5) POC INR (0.8-1.2) POC pH (7.35-7.45) POC pCO2 (35-45) mmHg POC pO2 (80-100) mmHg POC HCO3 (22-26) mmHg POC Total CO2 (23-27) mmHg POC ABG Base Excess (-2-3) VBG Lactic Acid (0.5-2.0) mmol/L Hgb O2 Saturation (94-97) POC Sodium (133-145) Sodium (133-145) mmol/L POC Potassium (3.3-5.1) Potassium (3.3-5.1) mmol/L POC Chloride (96-108) Chloride (96-108) mmol/L Carbon Dioxide (22-30) mmol/L Anion Gap (8.0-16.0) POC BUN (6-20) BUN (8-23) mg/dL Creatinine (0.6-1.1) mg/dL POC Creatinine (0.6-1.2) GFR Calculation Glucose (70-105) mg/dL POC Glucose (70-105) POC Arterial Lactate (0.5-2) Calcium (8.6-10.4) mg/dL POC WB Ioniz Calcium (1.16-1.32) Total Bilirubin (0.1-1.0) mg/dL AST (<32) U/L ALT (<40) U/L Alkaline Phosphatase (39-117) U/L NT-Pro-B Natriuret Pep (<450.0) pg/mL Total Protein (5.9-8.4) gm/dL Albumin (3.2-5.2) gm/dL Globulin (2.2-3.7) gm/dL Albumin/Globulin Ratio (1.0-2.3) Lipase (7-60) U/L Procalcitonin (<0.10) ng/mL Urine Color Urine Appearance (Clear) Urine pH (5.0-9.0) Ur Specific [place] (1.000-1.035) Urine Protein (Negative) mg/dL Urine Glucose (UA) (Negative) mg/dL Urine Ketones (Negative) mg/dL Urine Occult Blood (Negative) mg/dL Urine Nitrate (Negative) Urine Bilirubin (Negative) mg/dL Urine Urobilinogen mg/dL Ur Leukocyte Esterase (Negative) /uL Urine RBC (0-3) /hpf Urine WBC (0-4) /hpf Ur Squamous Epith Cells (0-4) /hpf Urine Bacteria (0) /hpf Hyaline Casts (0-2) /lph Urine Mucus (None) /hpf Ur Culture Indicated? POC Troponin I 0.15 H (0.02-0.08) ED POC Tests ED POC Tests: LUL - SARS Antigen Negative Discharge Plan Patient/Caregiver Discharge Instructions Pt seen by [employer] INSTRUCTOR/PA only: No Clinical Impression: Acute exacerbation of CHF (congestive heart failure), Acute respiratory failure with hypoxia, Diabetes Patient Disposition: Xfer As Inpt ([facility]) Condition: Serious Follow up with: Kam Sorensen ARNP [Primary Care Provider] - Prescriptions: No Action fluticasone propionate 50 mcg/actuation spray,suspension 2 spray INTRANASAL QDAY Qty: 16 2RF Rx Instructions: administer into each nostril tamsulosin 0.4 mg capsule 0.4 mg PO QDAY Qty: 30 11RF warfarin 4 mg tablet 4 mg PO QDAY Qty: 0 0RF naloxone [Narcan] 4 mg/actuation spray,non-aerosol 4 mg intranasal Q2M Qty: 2 0RF Rx Instructions: spray 1 dose into ONE nostril; alternate nostrils w each dose until help arrives ascorbic acid (vitamin C) [Vitamin C] 1,000 mg tablet 500 mg PO QDAY 0RF methadone 10 mg tablet 10 mg PO QDAY MDD 1 Qty: 30 0RF Rx Instructions: *MUST LAST 30 DAYS*, P/U 08/17 , Start 08/18 docusate sodium 100 mg capsule 100 mg PO BID PRN0RF cholecalciferol (vitamin D3) 50 mcg (2,000 unit) tablet 2,000 unit PO QDAY Qty: 90 4RF Claritin RediTabs 5 mg tablet,disintegrating 5 mg PO ONCE 0RF torsemide 20 mg tablet 20 mg PO BID 0RF Rx Instructions: 20 mg in am and 20 mg at 3:00 p.m. metronidazole 0.75 % cream 1 applic TOPICAL DAILY 0RF digoxin 125 mcg (0.125 mg) tablet 125 mcg PO DAILY 0RF lorazepam 1 mg tablet 1 mg PO QHS PRN (Reason: sleep) 0RF estradiol 0.01 % (0.1 mg/gram) cream 1 g VAGINAL 3XW 0RF ketotifen fumarate [[place]] 0.025 % (0.035 %) drops 1 drp OPHTHALMIC BID 0RF
--- NOTE | 2021-08-02 12:30 | Internal Med History&Physical ---
HPI History of Present Illness Patient information: Note initiated : 08/02/21 at 12:25 pm Service Date, if different from initiated Date: [as above] Patient: Kerline Loredo 86 y/o F admitted on for short of breath. Chief Complaint: [SOB] Chief complaint: SOB History of present illness: Ms. Loredo is a 86 year old F with a past medical history significant for chronic atrial fibrillation on Coumadin, neuropathy on methadone, and generalized anxiety on clonazepam who presents to the hospital with 24-hour history of dyspnea associated with palpitations. She denies any chest pain, or diaphoresis. She has no known history of ischemic cardiovascular disease. The patient lives alone however her daughter is next-door. The patient states that she is in her usual health and has not been seen by cardiology in quite some time she has been stable. This been no recent hospitalizations. The patient states that she does feel palpitations from time to time. She began to experience progressive shortness of breath yesterday evening when she called her daughter. She decided to come to the ER for further management and evaluation. On presentation, she was found to be hypoxemic and required BiPAP for temporization. She was prescribed Lasix 40 mg IV x1. She was monitored closely and her respiratory status did improve and she was transitioned to 2 L of nasal cannula. The hospital service was asked to admit the patient for further management and evaluation of her acute on chronic diastolic congestive heart failure exacerbation. Review of Systems All systems: reviewed and no additional remarkable complaints except as stated Constitutional Constitutional: Present as per HPI EENT Eyes: Present as per HPI; Absent blurry vision Cardiovascular Cardiovascular: Present as per HPI; Absent chest pain, dyspnea, dyspnea on exertion, leg edema or palpatations Respiratory Respiratory: Present as per HPI and dyspnea; Absent cough, dyspnea on exertion, wheezing or stridor Gastrointestinal Gastrointestinal: Present as per HPI; Absent abdominal pain, diarrhea, dysphagia, hematemesis, melena, nausea or vomiting Musculoskeletal Musculoskeletal: Present as per HPI; Absent joint swelling, limited range of motion, muscle cramps, muscle weakness or myalgias Integumentary Integumentary: Present as per HPI; Absent erythema, new lesions, rash or wounds Neurological Neurological: Present as per HPI; Absent abnormal gait, behavioral changes, focal weakness, headache(s), loss of vision, numbness, sensory deficit or syncope Endocrine Endocrine: Absent change in body appearance, fatigue or heat intolerance Hematologic/Lymphatic Hematologic/Lymphatic: Present as per HPI PFSH PFSH All Active Problems (Updated 08/02/21 @ 12:29 by Christopher Alegria MD) Atrial fibrillation with RVR (Acute) Acute exacerbation of CHF (congestive heart failure) (Acute) Acute respiratory failure with hypoxia (Acute) Diabetes (Acute) Pre-op evaluation (Acute) Encounter for monitoring Coumadin therapy (Acute) White coat syndrome with diagnosis of hypertension (Chronic) Erosive (osteo)arthritis (Acute) Knee pain, left (Acute) Hyponatremia (Chronic) Anemia due to stage 3a chronic kidney disease (Chronic) Hyperkalemia (Acute) Hypercalcemia (Acute) Chronic kidney disease (CKD) stage G3a/A3, moderately decreased glomerular filtration rate (GFR) between 45-59 mL/min/1.73 square meter and albuminuria creatinine ratio greater than 300 mg/g (Chronic) Basal cell carcinoma of skin, unspecified (Acute) Cardiac arrhythmia, unspecified (Acute) Opioid dependence, uncomplicated (Acute) Idiopathic progressive neuropathy (Acute) Chronic pain (Acute) Fatigue (Acute) History of colonoscopy (Chronic ~2001) Allergies (Chronic) Colon ulcer (Chronic) Kidney stones (Chronic ~2005) Insomnia (Chronic) Daytime sleepiness (Chronic) Basal cell carcinoma (Chronic ~1985) Arthritis (Chronic) Constipation (Chronic) Hayfever (Chronic) intermediate card tender (current) use of opiate analgesic (Chronic) Urinary incontinence (Chronic) Rosacea (Chronic) Chronic atrial fibrillation (Chronic) Neuropathy (Chronic) Ulcerative colitis (Chronic) Anxiety disorder (Chronic) Cyst of pancreas (Chronic) Localized edema due to fluid overload (Chronic) Persistent proteinuria (Chronic) Gout due to renal impairment (Chronic) Hyperglycemia (Chronic) Anemia (Chronic) Ulcerative enterocolitis (Chronic) Hypertension (Chronic) Acute anxiety (Chronic) Atrial fibrillation (Chronic) Chronic pain syndrome (Chronic) Peripheral neuropathy (Chronic) Medical History Acute anxiety Allergies Anemia Anxiety disorder Arthritis Atrial fibrillation Basal cell carcinoma (~1985) Basal cell carcinoma of skin, unspecified Cardiac arrhythmia, unspecified Chronic atrial fibrillation Chronic pain Chronic pain syndrome Colon ulcer Constipation Cyst of pancreas Daytime sleepiness Encounter for monitoring Coumadin therapy Erosive (osteo)arthritis Fatigue Hayfever Heart trouble (~1986) Hyperglycemia Hypertension Idiopathic progressive neuropathy Insomnia Kidney stones (~2005) Knee pain, left penitentiary (current) use of opiate analgesic Neuropathy Opioid dependence, uncomplicated use for nonmalignant pain Peripheral neuropathy Pre-op evaluation Rosacea Ulcerative colitis Ulcerative enterocolitis Urinary incontinence Surgical History History of colonoscopy (~2001) History of hysterectomy (~1968) Family History Grandmother Arthritis Maternal Aunt Cancer Heart attack Paternal Uncle Cancer Father Cancer Social History marital status: alcohol intake frequency: does not drink substance use type: does not use MEDS/ALLERGIES Home Medications and Allergies Home Medications Medication Instructions Recorded Confirmed Type docusate sodium 100 mg capsule 100 mg PO BID PRN 12/23/18 07/14/21 History cholecalciferol (vitamin D3) 50 2,000 unit PO QDAY #90 tab 04/14/19 07/14/21 Rx mcg (2,000 unit) tablet ketotifen fumarate 0.025 % (0.035 1 drp OPHTHALMIC BID 04/14/19 07/14/21 History %) eye drops ([place]) fluticasone propionate 50 2 spray INTRANASAL QDAY #16 g 10/20/19 08/02/21 Rx mcg/actuation nasal spray,suspension loratadine 5 mg disintegrating 5 mg PO ONCE 08/17/20 07/14/21 History tablet (Claritin RediTabs) tamsulosin 0.4 mg capsule 0.4 mg PO QDAY #30 cap 01/24/21 08/02/21 Rx naloxone 4 mg/actuation nasal 4 mg INTRANASAL Q2M #2 ea 06/07/21 07/14/21 Rx spray (Narcan) ascorbic acid (vitamin C) 1,000 mg 500 mg PO QDAY 06/08/21 07/14/21 History tablet (Vitamin C) methadone 10 mg tablet 10 mg PO QDAY #30 tab MDD 1 06/08/21 08/02/21 Rx warfarin 4 mg tablet 4 mg PO QDAY #0 tab 06/30/21 08/02/21 Rx torsemide 20 mg tablet 20 mg PO BID tab 07/14/21 08/02/21 History digoxin 125 mcg (0.125 mg) tablet 125 mcg PO DAILY 08/02/21 08/02/21 History estradiol 1 g VAGINAL 3XW 08/02/21 08/02/21 History lorazepam 1 mg tablet 1 mg PO QHS PRN 08/02/21 08/02/21 History metronidazole 0.75 % topical cream 1 applic TOPICAL DAILY 08/02/21 08/02/21 History Allergies Allergy/AdvReac Type Severity Reaction Status Date / Time bumetanide Allergy Unknown Unknown Verified 08/02/21 05:48 flaxseed Allergy Unknown Unknown Verified 08/02/21 05:48 gentamicin Allergy Unknown Anaphylaxis Verified 08/02/21 05:48 mesalamine Allergy Unknown Unknown Verified 08/02/21 05:48 Metolazone Allergy Unknown Unknown Verified 08/02/21 05:48 Sulfa (Sulfonamide Allergy Unknown Anaphylaxis Verified 08/02/21 05:48 Antibiotics) wheat Allergy Unknown Diarrhea Verified 08/02/21 05:48 Animals Allergy Unknown Unknown Uncoded 07/14/21 11:18 Grass Allergy Unknown Unknown Uncoded 07/14/21 11:18 Trees Allergy Unknown Unknown Uncoded 07/14/21 11:18 Weeds Allergy Unknown Unknown Uncoded 07/14/21 11:18 EXAM Constitutional Vitals: Pulse Resp BP Pulse Ox 96 H 22 125/62 91 08/02/21 12:00 08/02/21 12:00 08/02/21 12:00 08/02/21 12:00 General appearance: average body habitus Head Head exam: Present atraumatic, normal inspection and normocephalic Eye Eye exam: Present EOMI, normal appearance and PERRL; Absent conjunctival injection ENT ENT exam: Present normal exam; Absent mucous membranes dry Neck Neck exam: Present full ROM; Absent lymphadenopathy Respiratory Respiratory exam: Present normal respiratory exam and rales; Absent decreased breath sounds, CTAB, respiratory distress or wheezes Cardiovascular Cardiovascular exam: Present normal rate and rhythm, irregular rhythm, JVD and tachycardia GI/Abdominal GI/Abdominal exam: Present normal bowel sounds and soft; Absent diminished bowel sounds, distended, guarding, mass, rebound or tenderness Neurological Exam Neurological exam: Present alert, CN II-XII intact and oriented X3 Psychiatric Psychiatric exam: Present normal affect and normal mood Skin Skin exam: Present intact and warm; Absent erythema, pallor, petechiae or rash DATA Data Completed and Pending Labs: Labs from last 24 hours 08/02/21 08/02/21 08/02/21 07:57 07:54 06:39 WBC RBC Hgb Hct POC Hct 33.0 L MCV MCH MCHC RDW Plt Count MPV Neut % (Auto) Lymph % (Auto) [place] % (Auto) Eos % (Auto) Baso % (Auto) Lymph # (Auto) [place] # (Auto) Eos # (Auto) Baso # (Auto) Absolute Neutrophils POC PT 27.2 H POC INR 2.4 H POC pH POC pCO2 POC pO2 POC HCO3 POC Total CO2 28.0 POC ABG Base Excess VBG Lactic Acid Hgb O2 Saturation POC Sodium 127 L Sodium POC Potassium 4.4 Potassium POC Chloride 91 L Chloride Carbon Dioxide Anion Gap POC BUN 16 BUN Creatinine POC Creatinine 0.8 GFR Calculation Glucose POC Glucose 177 H POC Arterial Lactate Calcium POC WB Ioniz Calcium 1.01 L Total Bilirubin AST ALT Alkaline Phosphatase NT-Pro-B Natriuret Pep Total Protein Albumin Globulin Albumin/Globulin Ratio Lipase Procalcitonin Urine Color Urine Appearance Urine pH Ur Specific [place] Urine Protein Urine Glucose (UA) Urine Ketones Urine Occult Blood Urine Nitrate Urine Bilirubin Urine Urobilinogen Ur Leukocyte Esterase Urine RBC Urine WBC Ur Squamous Epith Cells Urine Bacteria Hyaline Casts Urine Mucus Ur Culture Indicated? POC Troponin I 0.15 H 08/02/21 08/02/21 08/02/21 06:38 04:16 03:47 WBC RBC Hgb Hct POC Hct MCV MCH MCHC RDW Plt Count MPV Neut % (Auto) Lymph % (Auto) [place] % (Auto) Eos % (Auto) Baso % (Auto) Lymph # (Auto) [place] # (Auto) Eos # (Auto) Baso # (Auto) Absolute Neutrophils POC PT Pending POC INR Pending POC pH 7.40 POC pCO2 46.3 H POC pO2 64 L POC HCO3 28.5 H POC Total CO2 30.0 H POC ABG Base Excess 4.0 H VBG Lactic Acid Hgb O2 Saturation 92.0 L POC Sodium Sodium POC Potassium Potassium POC Chloride Chloride Carbon Dioxide Anion Gap POC BUN BUN Creatinine POC Creatinine GFR Calculation Glucose POC Glucose POC Arterial Lactate 0.7 Calcium POC WB Ioniz Calcium Total Bilirubin AST ALT Alkaline Phosphatase NT-Pro-B Natriuret Pep Total Protein Albumin Globulin Albumin/Globulin Ratio Lipase Procalcitonin Urine Color Yellow Urine Appearance Clear Urine pH 6.0 Ur Specific [place] 1.008 Urine Protein >=500 A Urine Glucose (UA) Negative Urine Ketones Negative Urine Occult Blood Negative Urine Nitrate Negative Urine Bilirubin Negative Urine Urobilinogen Negative Ur Leukocyte Esterase Negative Urine RBC 5 H Urine WBC 2 Ur Squamous Epith Cells 0 Urine Bacteria None Hyaline Casts 6 H Urine Mucus Few A Ur Culture Indicated? No POC Troponin I 08/02/21 08/02/21 08/02/21 03:14 02:57 02:57 WBC 17.2 H RBC 4.05 Hgb 11.9 Hct 36.0 POC Hct MCV 88.9 MCH 29.4 MCHC 33.1 RDW 13.5 Plt Count 199 MPV 10.2 Neut % (Auto) 86.5 H Lymph % (Auto) 5.4 L [place] % (Auto) 7.6 Eos % (Auto) 0.2 Baso % (Auto) 0.3 Lymph # (Auto) 0.92 L [place] # (Auto) 1.30 H Eos # (Auto) 0.03 Baso # (Auto) 0.06 Absolute Neutrophils 14.84 H POC PT POC INR POC pH POC pCO2 POC pO2 POC HCO3 POC Total CO2 POC ABG Base Excess VBG Lactic Acid 1.5 Hgb O2 Saturation POC Sodium Sodium POC Potassium Potassium POC Chloride Chloride Carbon Dioxide Anion Gap POC BUN BUN Creatinine POC Creatinine GFR Calculation Glucose POC Glucose POC Arterial Lactate Calcium POC WB Ioniz Calcium Total Bilirubin AST ALT Alkaline Phosphatase NT-Pro-B Natriuret Pep Total Protein Albumin Globulin Albumin/Globulin Ratio Lipase Procalcitonin 0.09 Urine Color Urine Appearance Urine pH Ur Specific [place] Urine Protein Urine Glucose (UA) Urine Ketones Urine Occult Blood Urine Nitrate Urine Bilirubin Urine Urobilinogen Ur Leukocyte Esterase Urine RBC Urine WBC Ur Squamous Epith Cells Urine Bacteria Hyaline Casts Urine Mucus Ur Culture Indicated? POC Troponin I 08/02/21 08/02/21 02:54 02:54 WBC RBC Hgb Hct POC Hct MCV MCH MCHC RDW Plt Count MPV Neut % (Auto) Lymph % (Auto) [place] % (Auto) Eos % (Auto) Baso % (Auto) Lymph # (Auto) [place] # (Auto) Eos # (Auto) Baso # (Auto) Absolute Neutrophils POC PT POC INR POC pH POC pCO2 POC pO2 POC HCO3 POC Total CO2 POC ABG Base Excess VBG Lactic Acid Hgb O2 Saturation POC Sodium Sodium 125 L POC Potassium Potassium 4.0 POC Chloride Chloride 86 L Carbon Dioxide 27 Anion Gap 12.0 POC BUN BUN 16 Creatinine 0.9 POC Creatinine GFR Calculation 57 Glucose 230 H POC Glucose POC Arterial Lactate Calcium 9.4 POC WB Ioniz Calcium Total Bilirubin 0.9 AST 22 ALT 11 Alkaline Phosphatase 103 NT-Pro-B Natriuret Pep 839.5 H Total Protein 7.1 Albumin 4.2 Globulin 2.9 Albumin/Globulin Ratio 1.4 Lipase 12 Procalcitonin Urine Color Urine Appearance Urine pH Ur Specific [place] Urine Protein Urine Glucose (UA) Urine Ketones Urine Occult Blood Urine Nitrate Urine Bilirubin Urine Urobilinogen Ur Leukocyte Esterase Urine RBC Urine WBC Ur Squamous Epith Cells Urine Bacteria Hyaline Casts Urine Mucus Ur Culture Indicated? POC Troponin I 0 L A/P Assessment and plan (1) Acute exacerbation of CHF (congestive heart failure): Status: Acute (2) Acute respiratory failure with hypoxia: Status: Acute (3) Atrial fibrillation with RVR: Status: Acute Narrative A/P Narrative: At this point, the patient developed acute heart failure exacerbation in the setting of underlying tachyarrhythmia. We will repeat TTE to better assess her cardiac function and valves. At this point we will continue Lasix 40 mg IV twice daily and better control her heart rate. She will be prescribed Lopressor 5 mg IV x1 and then 25 mg p.o. twice daily. We will monitor strict I's and O's, daily weight and daily BMP. Time Spent With Patient Time: Total time spent is greater than 50% in coordination of care (as documented) at patient's floor/unit and/or counseling patient: Total time spent with greater than 50% in coordination of care (as documented) at patient's floor/unit and/or counseling patient:: 50 - 70 minutes
[2021-08-02] MEDS ORDERED: ONDANSETRON 4 MG/2 ML VIAL IV PRN (12:36)
[2021-08-02] MEDS ORDERED: LACTULOSE 20 GM/30 ML ORAL.SOL PO PRN (12:36)
[2021-08-02] MEDS ORDERED: SENNOSIDES 1 TABLET PO PRN (12:36)
[2021-08-02] MEDS ORDERED: METOPROLOL TARTRATE 5 MG/5 ML VIAL IV SCH (12:40)
[2021-08-02] MEDS ORDERED: WARFARIN 2 MG TABLET PO SCH (13:00)
[2021-08-02] MEDS: 0.9 % SODIUM CHLORIDE 10 ML SYRINGE IV SCH ×2 (13:31→23:58)
[2021-08-02] MEDS: FUROSEMIDE 40 MG/4 ML VIAL IV SCH (16:08)
[2021-08-02] MEDS ORDERED: VANCOMYCIN PER PHARMACY IV SCH (17:11)
[2021-08-02] MEDS: VANCOMYCIN 1,000 MG in 0.9 % SODIUM CHLORIDE 250 ML IV SCH (18:08)
[2021-08-02] MEDS: METOPROLOL TARTRATE 25 MG TABLET PO SCH (20:32)
[2021-08-02] MEDS: DOCUSATE SODIUM 100 MG CAPSULE PO SCH (20:32)
[2021-08-02] MEDS: LORazepam 1 MG TABLET PO PRN (21:02)
[2021-08-02] MEDS: ACETAMINOPHEN 325 MG TABLET PO PRN (23:58)
[2021-08-03] MEDS: 0.9 % SODIUM CHLORIDE 10 ML SYRINGE IV SCH ×3 (05:59→21:03)
[2021-08-03 06:36] LABS: Basophils # (Auto) 0.04 K/mcL (0.00-0.30); Basophils % (Auto) 0.3 % (0.0-2.0); Eosinophils # (Auto) 0.02 K/mcL (0.00-0.70); Eosinophils % (Auto) 0.2 % (0.0-7.0); Hematocrit 35.8 % (34.1-44.9); Hemoglobin 11.6 g/dL (11.2-15.7); Lymphocytes # (Auto) 1.38 K/mcL (1.50-4.80); Lymphocytes % (Auto) 10.5 % (15.5-49.0); Mean Cell Volume 90.2 fL (80.0-100.0); Mean Corpuscular HGB Conc 32.4 g/dL (31.0-36.0); Mean Platelet Volume 10.5 fL (7.4-10.4); Monocytes # (Auto) 1.45 K/mcL (0.10-0.90); Platelet Count 199 K/mcL (140-440); RBC 3.97 M/mcL (3.59-5.38); Red Cell Distribution Width 13.8 % (11.5-14.5); WBC 13.1 K/mcL (4.5-11.0)
[2021-08-03 06:50] LABS: INR 2.4 (0.9-1.1); Prothrombin Time 27.3 sec (11.9-14.5)
[2021-08-03 06:55] LABS: Blood Urea Nitrogen 27 mg/dL (8-23); Calcium 9.7 mg/dL (8.6-10.4); Carbon Dioxide 30 mmol/L (22-30); Chloride 90 mmol/L (96-108); Glomerular Filtration Rate 40; Glucose 154 mg/dL (70-105)
[2021-08-03] MEDS: FUROSEMIDE 40 MG/4 ML VIAL IV SCH (07:54)
[2021-08-03] MEDS: METHADONE 5 MG TABLET PO SCH (08:42)
[2021-08-03] MEDS: DIGOXIN 125 MCG TABLET PO SCH (08:43)
[2021-08-03] MEDS: DOCUSATE SODIUM 100 MG CAPSULE PO SCH ×2 (08:44→21:03)
[2021-08-03] MEDS: METOPROLOL TARTRATE 25 MG TABLET PO SCH (08:59)
[2021-08-03] MEDS: VANCOMYCIN 1,000 MG in 0.9 % SODIUM CHLORIDE 250 ML IV SCH (09:49)
[2021-08-03] MEDS ORDERED: AMOXICILLIN/POTASSIUM CLAV 875 MG TABLET PO ONE (09:52)
[2021-08-03] MEDS ORDERED: AMOXICILLIN/POTASSIUM CLAV 500 MG TABLET PO ONE (10:00)
--- NOTE | 2021-08-03 10:05 | Internal Med Progress Note ---
SUBJECTIVE Subjective Patient information: Note initiated : 08/03/21 at 10:03 am Service Date, if different from initiated Date: [] Patient: Kerline Loredo 86 y/o F admitted on 08/02/21 for short of breath. Chief Complaint: [SOB] Principal diagnosis: Enterococcal UTI, atrial fibrillation with RVR, congestive heart failure ex Interval history: The patient is doing much better today sitting up in her chair. The son-in-law and daughter were at the bedside. We discussed plan of care and disposition. Discussed the case with the RN. The patient denies any shortness of breath, palpitations or chest pain. She did have an adverse reaction to vancomycin infusion where she felt unwell temporarily. Constitutional Vitals: Vital Signs Temp Pulse Resp BP Pulse Ox 98.4 F 80 22 133/81 94 08/03/21 02:01 08/03/21 08:01 08/03/21 08:01 08/03/21 08:01 08/03/21 08:01 Period Temp Pulse Resp BP Sys/[place] Pulse Ox Last 24 Hr 98.2 F-98.4 F 65-122 18-26 91-157/53-94 91-98 Intake and Output 08/02/21 08/03/21 08/03/21 21:59 05:59 13:59 Intake Total 890 Output Total 200 750 Balance -200 140 Weight 55.656 kg Intake & Output: Intake & Output 08/02/21 08/03/21 08/03/21 21:59 05:59 13:59 Intake Total 890 Output Total 200 750 Balance -200 140 Weight 55.656 kg Intake: IV 250 Vancomycin 1,000 mg In Sodium 250 Chloride 0.9% 250 ml @ 250 mls/ hr IV Q24H [facility] Rx#:[id number] Oral 640 Output: Urine Catheter Amount 200 750 Other: Urine Appearance Clear Urine Color Light [place] Head Head exam: Present atraumatic and normal inspection Eye Eye exam: Present normal appearance ENT ENT exam: Present mucous membranes moist, normal exam and normal external ear exam Neck Neck exam: Present normal inspection Respiratory Respiratory exam: Present normal respiratory exam Cardiovascular Cardiovascular exam: Present normal rate and rhythm GI/Abdominal GI/Abdominal exam: Present normal bowel sounds Back Exam Back exam: Present normal inspection Neurological Exam Neurological exam: Present alert and oriented X3 Skin Skin exam: Present intact and warm OBJ DATA Labs CBC & Chem 7: 08/03/21 05:38 08/03/21 05:38 Labs: Abnormal Lab Results 08/03/21 08/03/21 08/03/21 05:38 05:38 05:38 WBC 13.1 H POC Hct MPV 10.5 H Neut % (Auto) Lymph % (Auto) 10.5 L Lymph # (Auto) 1.38 L [place] # (Auto) 1.45 H Absolute Neutrophils 10.25 H POC PT PT 27.3 H POC INR INR 2.4 H POC pCO2 POC pO2 POC HCO3 POC Total CO2 POC ABG Base Excess Hgb O2 Saturation POC Sodium Sodium 128 L POC Chloride Chloride 90 L BUN 27 H Creatinine 1.2 H Glucose 154 H POC Glucose POC WB Ioniz Calcium NT-Pro-B Natriuret Pep Urine Protein Urine RBC Hyaline Casts Urine Mucus POC Troponin I 08/02/21 08/02/21 08/02/21 07:57 07:54 06:39 WBC POC Hct 33.0 L MPV Neut % (Auto) Lymph % (Auto) Lymph # (Auto) [place] # (Auto) Absolute Neutrophils POC PT 27.2 H PT POC INR 2.4 H INR POC pCO2 POC pO2 POC HCO3 POC Total CO2 POC ABG Base Excess Hgb O2 Saturation POC Sodium 127 L Sodium POC Chloride 91 L Chloride BUN Creatinine Glucose POC Glucose 177 H POC WB Ioniz Calcium 1.01 L NT-Pro-B Natriuret Pep Urine Protein Urine RBC Hyaline Casts Urine Mucus POC Troponin I 0.15 H 08/02/21 08/02/21 08/02/21 04:16 03:47 02:57 WBC 17.2 H POC Hct MPV Neut % (Auto) 86.5 H Lymph % (Auto) 5.4 L Lymph # (Auto) 0.92 L [place] # (Auto) 1.30 H Absolute Neutrophils 14.84 H POC PT PT POC INR INR POC pCO2 46.3 H POC pO2 64 L POC HCO3 28.5 H POC Total CO2 30.0 H POC ABG Base Excess 4.0 H Hgb O2 Saturation 92.0 L POC Sodium Sodium POC Chloride Chloride BUN Creatinine Glucose POC Glucose POC WB Ioniz Calcium NT-Pro-B Natriuret Pep Urine Protein >=500 A Urine RBC 5 H Hyaline Casts 6 H Urine Mucus Few A POC Troponin I 08/02/21 08/02/21 02:54 02:54 WBC POC Hct MPV Neut % (Auto) Lymph % (Auto) Lymph # (Auto) [place] # (Auto) Absolute Neutrophils POC PT PT POC INR INR POC pCO2 POC pO2 POC HCO3 POC Total CO2 POC ABG Base Excess Hgb O2 Saturation POC Sodium Sodium 125 L POC Chloride Chloride 86 L BUN Creatinine Glucose 230 H POC Glucose POC WB Ioniz Calcium NT-Pro-B Natriuret Pep 839.5 H Urine Protein Urine RBC Hyaline Casts Urine Mucus POC Troponin I 0 L Meds: Medications Acetaminophen (Acetaminophen 325 Mg Tablet) 650 mg PO Q6HP PRN; Protocol PRN Reason: Per Pain Protocol/Fever > 101 Last Admin: 08/02/21 23:58 Dose: 650 mg Documented by: Amoxicillin/Clavulanate Potassium (Amoxicillin/Potassium Clav 500 Mg Tablet) [facility] Digoxin (Digoxin 125 Mcg Tablet) 125 mcg PO DAILY [facility] Last Admin: 08/03/21 08:43 Dose: 125 mcg Documented by: Docusate Sodium (Docusate Sodium 100 Mg Capsule) 100 mg PO BID [facility] Last Admin: 08/03/21 08:44 Dose: 100 mg Documented by: Lactulose (Lactulose 20 Gm/30 Ml Oral.Lucia) 10 gm PO DAILYP PRN PRN Reason: Constipation Lorazepam (Lorazepam 1 Mg Tablet) 1 mg PO QHS PRN PRN Reason: sleep Last Admin: 08/02/21 21:02 Dose: 1 mg Documented by: Methadone HCl (Methadone 5 Mg Tablet) 10 mg PO QDAY [facility] Last Admin: 08/03/21 08:42 Dose: 10 mg Documented by: Ondansetron HCl (Ondansetron 4 Mg/2 Ml Vial) 4 mg IV Q4HP PRN; Protocol PRN Reason: Nausea And Vomiting Last Admin: 08/03/21 00:02 Dose: 4 mg Documented by: Senna (Sennosides 1 Tablet) 2 tab PO HSP PRN PRN Reason: Constipation Sodium Chloride (0.9 % Sodium Chloride 10 Ml Syringe) 10 ml IV Q8 [facility] Last Admin: 08/03/21 05:59 Dose: 10 ml Documented by: Warfarin Sodium (Warfarin Per Pharmacy) [address] [facility] A/P Assessment and plan (1) Acute exacerbation of CHF (congestive heart failure): Status: Acute (2) Acute respiratory failure with hypoxia: Status: Acute (3) Atrial fibrillation with RVR: Status: Acute (4) Enterococcus UTI: Status: Acute Narrative A/P Narrative: At this point, the patient developed acute heart failure exacerbation in the setting of underlying tachyarrhythmia. We will repeat TTE to better assess her cardiac function and valves. At this point we will continue Lasix 40 mg IV twice daily and better control her heart rate. She will be prescribed Lopressor 5 mg IV x1 and then 25 mg p.o. twice daily. We will monitor strict I's and O's, daily weight and daily BMP. Plan of Treatment: 08/02: The patient was found to have grade 100,000 Enterococcus in her urine. Her blood culture was also positive 1 out of 2 for gram-positive bacilli which may be contaminant. We will repeat blood cultures and switch her vancomycin to Augmentin. If her blood cultures are positive we will switch to IV ampicillin. The patient's Lasix will be discontinued as her creatinine is slightly up to 1.2. We will discontinue her beta-lizzeth and keep her on her home digoxin. Time Spent With Patient Time: Total time spent is greater than 50% in coordination of care (as documented) at patient's floor/unit and/or counseling patient: Total time spent with greater than 50% in coordination of care (as documented) at patient's floor/unit and/or counseling patient:: 25 - 35 minutes
--- NOTE | 2021-08-03 12:34 | EKG ---
[facility] Test Date: 2021-08-02 Pat Name: Kerline Loredo Department: ED Room: Gender: Female General Manager Farm: : 1935 Requested By: Kendrick Singh Order Number: [id number] Reading MD: Casey Boyd Measurements Intervals [place] Rate: 100 P: [place]: QRS: 5 QRSD: 88 T: 192 QT: 318 QTc: 411 Interpretive Statements Atrial fibrillation Anterior infarct, old Electronically Signed On 08-03-2021 12:34:38 PDT by Casey Boyd /[email or web address]/[id number]
--- NOTE | 2021-08-03 12:35 | EKG ---
[facility] Test Date: 2021-08-02 Pat Name: Kerline Loredo Department: ED Room: Gender: Female Operator Coating Furnace: : 1935 Requested By: Nemesio Hill Order Number: [id number] Reading MD: Casey Boyd Measurements Intervals [place] Rate: 98 P: [place]: QRS: -55 QRSD: 119 T: 32 QT: 351 QTc: 449 Interpretive Statements Atrial flutter Electronically Signed On 08-03-2021 12:35:11 PDT by Casey Boyd /[email or web address]/[id number]
[2021-08-03] MEDS ORDERED: WARFARIN 2 MG TABLET PO ONE (14:00)
[2021-08-03] MEDS: AMOXICILLIN/POTASSIUM CLAV 500 MG TABLET PO SCH (17:06)
[2021-08-03] MEDS: LORazepam 1 MG TABLET PO PRN (21:03)
[2021-08-04] MEDS: 0.9 % SODIUM CHLORIDE 10 ML SYRINGE IV SCH ×3 (06:13→21:36)
[2021-08-04] MEDS: ACETAMINOPHEN 325 MG TABLET PO PRN (06:51)
[2021-08-04 07:28] LABS: INR 2.5 (0.9-1.1); Prothrombin Time 27.8 sec (11.9-14.5)
[2021-08-04] MEDS: AMOXICILLIN/POTASSIUM CLAV 500 MG TABLET PO SCH ×2 (08:25→17:18)
[2021-08-04] MEDS: DIGOXIN 125 MCG TABLET PO SCH (08:25)
[2021-08-04] MEDS: DOCUSATE SODIUM 100 MG CAPSULE PO SCH ×2 (08:25→21:35)
[2021-08-04] MEDS: METHADONE 5 MG TABLET PO SCH (08:26)
[2021-08-04] MEDS ORDERED: FUROSEMIDE 100 MG/10 ML VIAL IV ONE (09:15)
[2021-08-04 09:44] LABS: Blood Urea Nitrogen 30 mg/dL (8-23); Calcium 9.2 mg/dL (8.6-10.4); Carbon Dioxide 30 mmol/L (22-30); Chloride 88 mmol/L (96-108); Glomerular Filtration Rate 66; Glucose 135 mg/dL (70-105)
--- NOTE | 2021-08-04 13:25 | Internal Med Progress Note ---
SUBJECTIVE Subjective Patient information: Note initiated : 08/04/21 at 1:22 pm Service Date, if different from initiated Date: [] Patient: Kerline Loredo 86 y/o F admitted on 08/02/21 for short of breath. Chief Complaint: [SOB] Principal diagnosis: Enterococcal UTI, atrial fibrillation with RVR, congestive heart failure ex Interval history: The patient was resting comfortably in bed. She had no active complaints or concerns. We discussed disposition. We are currently waiting for final blood cultures to result prior to discharge to home. The patient is eager to return home. She states that her breathing has worsened a little bit today. Son-in-law was present at the bedside. Constitutional Vitals: Vital Signs Temp Pulse Resp BP Pulse Ox 97.8 F 97 H 16 143/95 97 08/04/21 08:02 08/04/21 00:06 08/04/21 04:01 08/04/21 10:01 08/04/21 10:01 Period Temp Pulse Resp BP Sys/Hannon Pulse Ox Last 24 Hr 97.3 F-98.3 F 52-97 16-16 112-146/60-95 89-99 Intake and Output 08/03/21 08/04/21 08/04/21 21:59 05:59 13:59 Intake Total 965 200 240 Output Total 301 689 2415 Balance 590 -325 -1060 Weight 57.425 kg Intake & Output: Intake & Output 08/03/21 08/04/21 08/04/21 21:59 05:59 13:59 Intake Total 965 200 240 Output Total 431 965 1022 Balance 590 -325 -1060 Weight 57.425 kg Intake: Nourishment/Supplement quantity 240 (ml) Oral 725 200 240 Output: Urine Catheter Amount 665 426 7210 Void Amount 150 Other: Meal Dinner Yogurt cup Percent of Meal Consumed 0% 100% Feeding Ability Independent Nourishment/Supplement name Ensure Urine Appearance Hematuria Clear Clear Uretheral (Oakes) Hematuria Hematuria Urine Color Dark Alondra Dark Yellow Pale Urine Odor Normal Head Head exam: Present atraumatic and normal inspection Eye Eye exam: Present normal appearance ENT ENT exam: Present mucous membranes moist, normal exam and normal external ear exam Neck Neck exam: Present normal inspection Respiratory Respiratory exam: Present accessory muscle use and rales; Absent normal respiratory exam Cardiovascular Cardiovascular exam: Present normal rate and rhythm GI/Abdominal GI/Abdominal exam: Present normal bowel sounds Back Exam Back exam: Present normal inspection Neurological Exam Neurological exam: Present alert and oriented X3 Skin Skin exam: Present intact and warm OBJ DATA Labs CBC & Chem 7: 08/03/21 05:38 08/04/21 05:15 Labs: Abnormal Lab Results 08/04/21 08/04/21 08/04/21 07:59 05:15 05:15 WBC POC Hct MPV Neut % (Auto) Lymph % (Auto) Lymph # (Auto) Bennett # (Auto) Absolute Neutrophils POC PT PT 27.8 H POC INR INR 2.5 H POC pCO2 POC pO2 POC HCO3 POC Total CO2 POC ABG Base Excess Hgb O2 Saturation POC Sodium Sodium 125 L POC Chloride Chloride 88 L Anion Gap 7.0 L BUN 30 H Creatinine Glucose 135 H POC Glucose POC WB Ioniz Calcium NT-Pro-B Natriuret Pep Urine Protein Urine RBC Hyaline Casts Urine Mucus Vancomycin Trough < 4.0 L POC Troponin I 08/03/21 08/03/21 08/03/21 05:38 05:38 05:38 WBC 13.1 H POC Hct MPV 10.5 H Neut % (Auto) Lymph % (Auto) 10.5 L Lymph # (Auto) 1.38 L Bennett # (Auto) 1.45 H Absolute Neutrophils 10.25 H POC PT PT 27.3 H POC INR INR 2.4 H POC pCO2 POC pO2 POC HCO3 POC Total CO2 POC ABG Base Excess Hgb O2 Saturation POC Sodium Sodium 128 L POC Chloride Chloride 90 L Anion Gap BUN 27 H Creatinine 1.2 H Glucose 154 H POC Glucose POC WB Ioniz Calcium NT-Pro-B Natriuret Pep Urine Protein Urine RBC Hyaline Casts Urine Mucus Vancomycin Trough POC Troponin I 08/02/21 08/02/21 08/02/21 07:57 07:54 06:39 WBC POC Hct 33.0 L MPV Neut % (Auto) Lymph % (Auto) Lymph # (Auto) Bennett # (Auto) Absolute Neutrophils POC PT 27.2 H PT POC INR 2.4 H INR POC pCO2 POC pO2 POC HCO3 POC Total CO2 POC ABG Base Excess Hgb O2 Saturation POC Sodium 127 L Sodium POC Chloride 91 L Chloride Anion Gap BUN Creatinine Glucose POC Glucose 177 H POC WB Ioniz Calcium 1.01 L NT-Pro-B Natriuret Pep Urine Protein Urine RBC Hyaline Casts Urine Mucus Vancomycin Trough POC Troponin I 0.15 H 08/02/21 08/02/21 08/02/21 04:16 03:47 02:57 WBC 17.2 H POC Hct MPV Neut % (Auto) 86.5 H Lymph % (Auto) 5.4 L Lymph # (Auto) 0.92 L Bennett # (Auto) 1.30 H Absolute Neutrophils 14.84 H POC PT PT POC INR INR POC pCO2 46.3 H POC pO2 64 L POC HCO3 28.5 H POC Total CO2 30.0 H POC ABG Base Excess 4.0 H Hgb O2 Saturation 92.0 L POC Sodium Sodium POC Chloride Chloride Anion Gap BUN Creatinine Glucose POC Glucose POC WB Ioniz Calcium NT-Pro-B Natriuret Pep Urine Protein >=500 A Urine RBC 5 H Hyaline Casts 6 H Urine Mucus Few A Vancomycin Trough POC Troponin I 08/02/21 08/02/21 02:54 02:54 WBC POC Hct MPV Neut % (Auto) Lymph % (Auto) Lymph # (Auto) Bennett # (Auto) Absolute Neutrophils POC PT PT POC INR INR POC pCO2 POC pO2 POC HCO3 POC Total CO2 POC ABG Base Excess Hgb O2 Saturation POC Sodium Sodium 125 L POC Chloride Chloride 86 L Anion Gap BUN Creatinine Glucose 230 H POC Glucose POC WB Ioniz Calcium NT-Pro-B Natriuret Pep 839.5 H Urine Protein Urine RBC Hyaline Casts Urine Mucus Vancomycin Trough POC Troponin I 0 L Meds: Medications Acetaminophen (Acetaminophen 325 Mg Tablet) 650 mg PO Q6HP PRN; Protocol PRN Reason: Per Pain Protocol/Fever > 101 Last Admin: 08/04/21 06:51 Dose: 650 mg Documented by: Amoxicillin/Clavulanate Potassium (Amoxicillin/Potassium Clav 500 Mg Tablet) [facility]; Protocol Last Admin: 08/04/21 08:25 Dose: 500 mg Documented by: Digoxin (Digoxin 125 Mcg Tablet) 125 mcg PO DAILY [facility] Last Admin: 08/04/21 08:25 Dose: 125 mcg Documented by: Docusate Sodium (Docusate Sodium 100 Mg Capsule) 100 mg PO BID [facility] Last Admin: 08/04/21 08:25 Dose: 100 mg Documented by: Lactulose (Lactulose 20 Gm/30 Ml Oral.Lucia) 10 gm PO DAILYP PRN PRN Reason: Constipation Last Admin: 08/04/21 11:40 Dose: 10 gm Documented by: Lorazepam (Lorazepam 1 Mg Tablet) 1 mg PO QHS PRN PRN Reason: sleep Last Admin: 08/03/21 21:03 Dose: 1 mg Documented by: Methadone HCl (Methadone 5 Mg Tablet) 10 mg PO QDAY [facility] Last Admin: 08/04/21 08:26 Dose: 10 mg Documented by: Ondansetron HCl (Ondansetron 4 Mg/2 Ml Vial) 4 mg IV Q4HP PRN; Protocol PRN Reason: Nausea And Vomiting Last Admin: 08/03/21 00:02 Dose: 4 mg Documented by: Senna (Sennosides 1 Tablet) 2 tab PO HSP PRN PRN Reason: Constipation Last Admin: 08/03/21 21:03 Dose: 2 tab Documented by: Sodium Chloride (0.9 % Sodium Chloride 10 Ml Syringe) 10 ml IV Q8 [facility] Last Admin: 08/04/21 06:13 Dose: 10 ml Documented by: Warfarin Sodium (Warfarin Per Pharmacy) 1 order PO UD [facility] Warfarin Sodium (Warfarin 2 Mg Tablet) 4 mg PO ONCE@1400 ONE Stop: 08/04/21 14:01 A/P Assessment and plan (1) Acute exacerbation of CHF (congestive heart failure): Status: Acute (2) Acute respiratory failure with hypoxia: Status: Acute (3) Atrial fibrillation with RVR: Status: Acute (4) Enterococcus UTI: Status: Acute Narrative A/P Narrative: At this point, the patient developed acute heart failure exacerbation in the setting of underlying tachyarrhythmia. We will repeat TTE to better assess her cardiac function and valves. At this point we will continue Lasix 40 mg IV twice daily and better control her heart rate. She will be prescribed Lopressor 5 mg IV x1 and then 25 mg p.o. twice daily. We will monitor strict I's and O's, daily weight and daily BMP. Plan of Treatment: 08/03: The patient was found to have grade 100,000 Enterococcus in her urine. Her blood culture was also positive 1 out of 2 for gram-positive bacilli which may be contaminant. We will repeat blood cultures and switch her vancomycin to Augmentin. If her blood cultures are positive we will switch to IV ampicillin. The patient's Lasix will be discontinued as her creatinine is slightly up to 1.2. We will discontinue her beta-lizzeth and keep her on her home digoxin. 6/10: The patient's blood cultures are likely contaminant and 1 bottle reveals bacillus species, not anthracis. We will continue Augmentin for another day for enterococcal UTI. She remains on supplemental O2 and will require another dose of IV Lasix. We will remove her Oakes catheter later today. She will require RT home O2 eval prior to discharge likely tomorrow morning. Time Spent With Patient Time: Total time spent is greater than 50% in coordination of care (as documented) at patient's floor/unit and/or counseling patient: Total time spent with greater than 50% in coordination of care (as documented) at patient's floor/unit and/or counseling patient:: 25 - 35 minutes
[2021-08-04] MEDS ORDERED: WARFARIN 2 MG TABLET PO ONE (14:00)
[2021-08-04] MEDS ORDERED: BISACODYL 10 MG SUPP.RECT PR ONE ×2 (19:44→20:00)
[2021-08-04] MEDS: LORazepam 1 MG TABLET PO PRN (21:36)
[2021-08-05] MEDS: 0.9 % SODIUM CHLORIDE 10 ML SYRINGE IV SCH (05:12)
[2021-08-05 07:06] LABS: INR 2.2 (0.9-1.1); Prothrombin Time 25.5 sec (11.9-14.5)
[2021-08-05 07:26] LABS: Blood Urea Nitrogen 31 mg/dL (8-23); Calcium 9.9 mg/dL (8.6-10.4); Carbon Dioxide 31 mmol/L (22-30); Chloride 91 mmol/L (96-108); Glomerular Filtration Rate 66; Glucose 115 mg/dL (70-105)
[2021-08-05] MEDS: DOCUSATE SODIUM 100 MG CAPSULE PO SCH (07:35)
[2021-08-05] MEDS: METHADONE 5 MG TABLET PO SCH (08:40)
[2021-08-05] MEDS: AMOXICILLIN/POTASSIUM CLAV 500 MG TABLET PO SCH (08:40)
[2021-08-05] MEDS: DIGOXIN 125 MCG TABLET PO SCH (08:41)
--- NOTE | 2021-08-05 09:47 | Discharge Summary ---
Discharge Provider Provider IMPORTANT FOLLOW-UP INFORMATION FOR PCP: 1. Follow up with cardiology 2. May need to uptitrate torsemide 3. May need to add beta lizzeth in the future 4. Repeat home O2 eval Patient information: Note initiated : 08/05/21 at 9:46 am Service Date, if different from initiated Date: [as above] Patient: Kerline Loredo a 86 y/o F admitted on 08/02/21 for short of breath. Chief Complaint: [SOB] Date of admission: 08/02/21 12:33 Discharge date: 08/05/21 Primary care physician: TRACY Fierro Admitting clinician: Christopher Alegria Consults: 08/02/21 Consult to Physician [CONS] Stat Comment: Consulting Provider: Christopher Alegria Reason For Exam: Physician to Consult Attending physician on discharge: Christopher Alegria COURSE Hospital Course Hospital course: Ms. Loredo is a 86 year old F with a past medical history significant for chronic atrial fibrillation on Coumadin, neuropathy on methadone, and generalized anxiety on clonazepam who presents to the hospital with 24-hour history of dyspnea associated with palpitations. She denies any chest pain, or diaphoresis. She has no known history of ischemic cardiovascular disease. The patient lives alone however her daughter is next-door. The patient states that she is in her usual health and has not been seen by cardiology in quite some time she has been stable. This been no recent hospitalizations. The patient states that she does feel palpitations from time to time. She began to experience progressive shortness of breath yesterday evening when she called her daughter. She decided to come to the ER for further management and evaluation. On presentation, she was found to be hypoxemic and required BiPAP for temporization. She was prescribed Lasix 40 mg IV x1. She was monitored closely and her respiratory status did improve and she was transitioned to 2 L of nasal cannula. The hospital service was asked to admit the patient for further management and evaluation of her acute on chronic diastolic congestive heart failure exacerbation. A/P Narrative: At this point, the patient developed acute heart failure exacerbation in the setting of underlying tachyarrhythmia. We will repeat TTE to better assess her cardiac function and valves. At this point we will continue Lasix 40 mg IV twice daily and better control her heart rate. She will be prescribed Lopressor 5 mg IV x1 and then 25 mg p.o. twice daily. We will monitor strict I's and O's, daily weight and daily BMP. Plan of Treatment: 08/03: The patient was found to have grade 100,000 Enterococcus in her urine. Her blood culture was also positive 1 out of 2 for gram-positive bacilli which may be contaminant. We will repeat blood cultures and switch her vancomycin to Augmentin. If her blood cultures are positive we will switch to IV ampicillin. The patient's Lasix will be discontinued as her creatinine is slightly up to 1.2. We will discontinue her beta-lizzeth and keep her on her home digoxin. 08/04: The patient's blood cultures are likely contaminant and 1 bottle reveals bacillus species, not anthracis. We will continue Augmentin for another day for enterococcal UTI. She remains on supplemental O2 and will require another dose of IV Lasix. We will remove her Oakes catheter later today. She will require RT home O2 eval prior to discharge likely tomorrow morning. 08/05: The patient has now completed 3 days of antibiotic therapy for her enterococcal UTI. Her blood culture was a true contaminant and subsequent 3 cultures were negative to date. She will continue her home digoxin, torsemide, and Coumadin for atrial fibrillation. It is highly recommended she follow-up with cardiology in outpatient setting. She is doing well after IV diuresis. She unfortunately will require home supplemental O2. Plan was discussed with the daughter who was present at the bedside. She was agreeable to the plan of care. Discharge diagnosis: Acute hypoxemic respiratory failure, atrial fibrillation with RVR Secondary discharge diagnosis: Enterococcal UTI Reason for admission: Dyspnea Time Spent with Patient Time attestation: Total time spent providing and/or coordinating discharge services: Time spent: Greater than 30 minutes EXAM Constitutional Vitals: Temp Pulse Resp BP Pulse Ox 97.4 F 80 18 151/77 95 08/05/21 08:01 08/05/21 04:00 08/05/21 08:01 08/05/21 08:01 08/05/21 08:01 General appearance: average body habitus Head Head exam: Present atraumatic, normal inspection and normocephalic Eye Eye exam: Present EOMI, normal appearance and PERRL; Absent conjunctival injection ENT ENT exam: Present normal exam; Absent mucous membranes dry Neck Neck exam: Present full ROM; Absent lymphadenopathy Respiratory Respiratory exam: Present normal respiratory exam and CTAB; Absent decreased breath sounds, respiratory distress or wheezes Cardiovascular Cardiovascular exam: Present irregular rhythm; Absent JVD or RRR GI/Abdominal GI/Abdominal exam: Present normal bowel sounds and soft; Absent diminished bowel sounds, distended, guarding, mass, rebound or tenderness Neurological Exam Neurological exam: Present alert, CN II-XII intact and oriented X3 Psychiatric Psychiatric exam: Present normal affect and normal mood Skin Skin exam: Present intact and warm; Absent erythema, pallor, petechiae or rash Discharge Data Data Completed and Pending Labs on day of discharge: Labs from last 24 hours 08/05/21 08/05/21 05:08 05:08 PT 25.5 H INR 2.2 H Sodium 131 L Potassium 4.0 Chloride 91 L Carbon Dioxide 31 H Anion Gap 9.0 BUN 31 H Creatinine 0.8 GFR Calculation 66 Glucose 115 H Calcium 9.9 Preliminary micro results at discharge 08/04/21 05:28 Blood Culture - Preliminary Blood 08/04/21 05:15 Blood Culture - Preliminary Blood 08/02/21 03:14 Blood Culture - Preliminary Blood 08/02/21 03:04 Blood Culture - Preliminary Blood Bacillus species not anthracis Discharge Plan Patient/Caregiver Discharge Instructions Activity: increase activity as tolerated Diet: Cardiac Instructions: Using Oxygen at Home (GEN), Edema (GEN), Shortness of Breath (GEN) Activity Restrictions/Additional Instructions: Continue with a Dysphagia level 4 pureed diet as suggested by our biomedical engineering professor; see the reference sheet in your packet for suggestions. Prescriptions: Continued fluticasone propionate 50 mcg/actuation spray,suspension 2 spray INTRANASAL QDAY Qty: 16 2RF Rx Instructions: administer into each nostril tamsulosin 0.4 mg capsule 0.4 mg PO QDAY Qty: 30 11RF warfarin 4 mg tablet 4 mg PO QDAY Qty: 0 0RF ascorbic acid (vitamin C) [Vitamin C] 1,000 mg tablet 500 mg PO QDAY 0RF methadone 10 mg tablet 10 mg PO QDAY MDD 1 Qty: 30 0RF Rx Instructions: *MUST LAST 30 DAYS*, P/U 08/17 , Start 08/18 docusate sodium 100 mg capsule 100 mg PO BID PRN (Reason: Constipation) 0RF cholecalciferol (vitamin D3) 50 mcg (2,000 unit) tablet 2,000 unit PO QDAY Qty: 90 4RF torsemide 20 mg tablet 20 mg PO BID 0RF Rx Instructions: 20 mg in am and 20 mg at 3:00 p.m. metronidazole 0.75 % cream 1 applic TOPICAL DAILY 0RF Rx Instructions: Applies to face for rosacea digoxin 125 mcg (0.125 mg) tablet 125 mcg PO DAILY 0RF lorazepam 1 mg tablet See Rx Instructions .ROUTE .COMPLEX 0RF Rx Instructions: PT states takes 1/2 tab - a whole tab estradiol 0.01 % (0.1 mg/gram) cream 1 g VAGINAL 2-3XW 0RF Rx Instructions: Takes Saturday and Saturday nights ketotifen fumarate [[place]] 0.025 % (0.035 %) drops 1 drp OPHTHALMIC BID 0RF Other Ambulatory Orders: Home Oxygen Order (Routine) Location: None Selected Ordered By: Christopher Alegria Follow Up Plan Follow up with: Kam Sorensen ARNP [Primary Care Provider] - 08/08/21 11:15 am (Please check in at 11:00 am) Patient Disposition: Home, Self-Care Plan of Treatment: 08/03: The patient was found to have grade 100,000 Enterococcus in her urine. Her blood culture was also positive 1 out of 2 for gram-positive bacilli which may be contaminant. We will repeat blood cultures and switch her vancomycin to Augmentin. If her blood cultures are positive we will switch to IV ampicillin. The patient's Lasix will be discontinued as her creatinine is slightly up to 1.2. We will discontinue her beta-lizzeth and keep her on her home digoxin. 08/04: The patient's blood cultures are likely contaminant and 1 bottle reveals bacillus species, not anthracis. We will continue Augmentin for another day for enterococcal UTI. She remains on supplemental O2 and will require another dose of IV Lasix. We will remove her Oakes catheter later today. She will require RT home O2 eval prior to discharge likely tomorrow morning. Prognosis: Good Rehab Potential: Good I certify that the patient requires SNF services: No Overall status at discharge: patient is progressing back to baseline Discharge Orders: Discharge Order (Routine); Ordered 08/05/21 Ordered By: Christopher Alegria
== END 2021-08-05 11:45 | disposition home or self-care (01) | DRG 189 ==
LOC: ED 02:30 → ICU 12:33
PROVIDERS: ADMIT Student in an Organized Health Care Education/Training Program; ATTEND Student in an Organized Health Care Education/Training Program